=== PATIENT | female | born 1995 ===

== ENCOUNTER 2020-09-30 08:06 | Outpatient (REF) | payer OTHER, SELFPAY ==
[2020-09-30 12:37] LABS: SARS COV2 PCR INHOUSE NEGATIVE (Negative)
== END 2020-09-30 08:07 | disposition home or self-care (01) ==
LOC: HO.LAB 08:06
PROVIDERS: Visit Provider Internal Medicine
DX: Z20.822 Contact with and (suspected) exposure to COVID-19 (principal)
CPT/HCPCS: C9803; U0003

== ENCOUNTER 2020-12-19 02:38 | Emergency (ER) | payer OTHER, SELFPAY ==
--- NOTE | ~2020-12-19 | CT_ITS ---
EXAMINATION: CT ABDOMEN AND PELVIS WITHOUT CONTRAST CLINICAL INFORMATION: Left flank pain. Nausea and vomiting. COMPARISON: None TECHNIQUE: Multidetector volumetric imaging was performed from the superior aspect of the liver through the pubic symphysis. Sagittal and coronal reformatted images were obtained on the technologist's workstation. This CT examination was performed using dose optimization techniques as appropriate, variously including the following: *Automated exposure control *Adjustment of mA and/or kV according to patient size (this includes techniques or standardized protocols for targeted exams where dose is matched to indication/reason for exam; i.e. extremities or head) *Use of iterative reconstruction technique DLP: 272 mGy-cm FINDINGS: LUNG BASES: The visualized lung bases are unremarkable. LIVER, GALLBLADDER, AND BILIARY TREE: The liver is normal in size, shape, and attenuation. No focal hepatic lesion or biliary ductal dilatation is present. The gallbladder is unremarkable with no evidence of radiopaque gallstones, gallbladder wall thickening, or obvious pericholecystic inflammatory changes. PANCREAS: Unremarkable. SPLEEN: Unremarkable. ADRENAL GLANDS: Unremarkable. KIDNEYS AND URETERS: There is a 2 mm stone in the region of the left ureterovesical junction along the bladder aspect, possibly within the ureterovesical junction, or adjacent to within the bladder. Mild upstream hydroureter and pelviectasis without gaurav hydronephrosis. There are 3 punctate nonobstructive intrarenal calculi within the right kidney. BLADDER: Unremarkable. GASTROINTESTINAL TRACT: The small and large bowel are unremarkable. The appendix is unremarkable. ABDOMINAL WALL: No significant hernia is appreciated. LYMPH NODES: Normal. VASCULAR: Unremarkable. PELVIC VISCERA: Uterus and adnexa unremarkable. OSSEOUS STRUCTURES: Unremarkable. CT/CT abdomen pelvis wo con IMPRESSION: * There is a 2 mm stone within the bladder (recently passed) near the LEFT ureterovesical junction, or within the LEFT ureterovesical junctioncc, associated mild UPSTREAM hydroureter and pelviectasis. Correlate with hematology. * There are 3 punctate nonobstructive intrarenal calculi within the right kidney.
[2020-12-19 02:50] VITALS: BP 120/68; BP 133/78; PULSE 78; PULSE 88; RESP 26; TEMP 36.4; O2SAT 100; BMI 17.6
[2020-12-19 03:04] VITALS: BP 122/68; PULSE 68; RESP 22; O2SAT 100
[2020-12-19 03:04] LABS: Glucose Urine UA NEG (NEG); Leukocyte Esterase Urine NEG (NEG); Nitrite Urine NEG (NEG); Specific Gravity - Urine >= 1.030 (1.005-1.025); Urine Blood 3+ (NEG); Urine Ketones NEG (NEG); Urine Protein NEG (NEG-TRACE)
[2020-12-19 03:08] LABS: Appearance Urine CLEAR; Color Urine YELLOW
[2020-12-19 03:26] LABS: RBC Urine 50-75 /HPF (0); Squamous Epithelial Cell Urine TRACE /LPF; WBC Urine 0-2 /HPF (0-4)
[2020-12-19 03:27] LABS: Mucus Urine TRACE /LPF
--- NOTE | 2020-12-19 04:05 | ED_ITS ---
HPI - General Adult General Chief complaint: Back Pain/Injury Stated complaint: Back Pain Time Seen by Provider: 12/19/20 03:41 Source: patient Mode of arrival: EMS History of Present Illness HPI narrative: 25-year-old female who arrives via EMS with acute onset of left flank pain that was associated with several episodes of nausea and vomiting but denies any fever chills. Patient states she has never experienced this kind of pain before and denies any history of kidney stones. Otherwise, she states her LMP is 6/2 and denies any urinary pain/burning/frequency. Currently, she states she is actually feeling better. Related Data Allergies Allergy/AdvReac Type Severity Reaction Status Date / Time naproxen [From ALEVE] Allergy Unknown SWOLLEN Verified 12/19/20 02:54 Review of Systems Review of Systems: Pertinent positives and negatives as stated in HPI 10 point review of systems is otherwise negative. PMFSH Past Medical History Source: nursing notes reviewed Social History Social History Substance Use Type: Marijuana Advance Directives: No Advance Directives Information Provided: No Patient : No Physical Exam Vital Signs: Vital Signs: Last Vital Signs Temp 97.6 F 12/19/20 02:50 Pulse 68 12/19/20 03:04 Resp 22 H 12/19/20 03:04 BP 122/68 12/19/20 03:04 Pulse Ox 100 12/19/20 03:04 Body Mass Index 17.6 VITAL SIGNS: Reviewed. GENERAL: Well developed, well nourished, in no acute distress. HEAD: Normocephalic/atraumatic EYES: PERRLA, EOMI OROPHARYNX: no oral lesions noted, posterior pharynx clear NECK: Supple, no adenopathy LUNGS: Normal breath sounds. No adventitious sounds or accessory muscle use. SpO2<100> CARDIOVASCULAR: Regular rate and rhythm without noted murmurs ABDOMEN: Soft, mild tenderness on palpation of the left flank, non-distended with bowel sounds. NEUROLOGIC: Alert and oriented x 4. Course Course Course Narrative: 25-year-old female with history and clinical presentation consistent with likely passed stone, doubt UTI, pyelonephritis. On review of all investigations there is no evidence of UTI and CT scan demonstrates passed stone in the bladder. All results were discussed with patient at bedside she was discharged home in stable condition with instructions to take analgesics for residual pain. Medical Decision Making Lab Data Labs: Lab Results 12/19/20 12/19/20 Range/Units 02:58 02:58 Urine Color YELLOW Urine Appearance CLEAR Urine pH 6.0 (5.0-8.0) Ur Specific [place] >= 1.030 H (1.005-1.025) Urine Protein NEG (NEG-TRACE) MG/DL Urine Glucose (UA) NEG (NEG) MG/DL Urine Ketones NEG (NEG) MG/DL Urine Blood 3+ H (NEG) Urine Nitrite NEG (NEG) Ur Leukocyte Esterase NEG (NEG) Urine RBC 50-75 H (0) /HPF Urine WBC 0-2 (0-4) /HPF Ur Squamous Epith Cells TRACE /LPF Urine Bacteria NONE /LPF Urine Mucus TRACE /LPF Urine Test NEGATIVE (NEGATIVE) Discharge Plan Discharge Clinical Impression: Renal colic Patient Disposition: Home, Self-Care Instructions: Renal Colic (ED) Additional Instructions: 1. Increase fluid hydration especially with water. Try to avoid excessive use of carbonated/caffeinated beverages. 2. Recommend using [id number] Tylenol/ibuprofen as needed for residual pain control. 3. Follow-up with your primary care provider in the next 2-3 days for re-eval uation. Return to the ER for any acute worsening of symptoms. Referrals: Physician,None [Primary Care Provider] - 2 days
[2020-12-19 04:07] LABS: UPreg QC Valid YES; Urine Pregnancy NEGATIVE (NEGATIVE)
[2020-12-19 05:30] VITALS: BP 94/52; PULSE 72; RESP 16; O2SAT 98
[2020-12-19] MEDS: Acetaminophen 325 MG TABLET 975 MG PO (05:32)
== END 2020-12-19 05:36 | disposition home or self-care (01) ==
PROVIDERS: Emergency Provider Student in an Organized Health Care Education/Training Program
DX: N23 Unspecified renal colic (principal); Z87.442 Personal history of urinary calculi
CPT/HCPCS: 74176; 81001; 81025; 99284; 99285

== ENCOUNTER 2021-05-31 11:46 | Emergency (ER) | payer OTHER, SELFPAY ==
[2021-05-31 12:20] VITALS: BP 116/61; PULSE 77; RESP 18; TEMP 36.8; O2SAT 99; BMI 18.3
--- NOTE | 2021-05-31 13:23 | ED_ITS ---
HPI - Ear Problem General Chief complaint: Ear Problems Stated complaint: L Ear Pain Time Seen by Provider: 05/31/21 13:23 Source: patient Mode of arrival: ambulatory Limitations: no limitations History of Present Illness HPI Narrative: Left ear pain evaluation. 25-year-old female came in for evaluation of left ear pain for 2 days, patient reported that she has been cleaning her ear with Q-tips more frequently. No hearing loss. No fever or chills. Related Data Previous Rx's Medication Instructions Recorded amoxicillin 500 mg tablet 500 mg PO BID #14 tab 05/31/21 Allergies Allergy/AdvReac Type Severity Reaction Status Date / Time naproxen [From ALEVE] Allergy Unknown SWOLLEN Verified 12/19/20 02:54 Review of Systems Review of Systems: All other systems are reviewed and are negative Constitutional: Reports as per HPI and Reports no additional constitutional complaints Eyes: Reports as per HPI and Reports no additional eye complaints Reports system reviewed and no additional complaints, except as documented Cardiovascular: Reports as per HPI and Reports no additional cardiovascular complaints Respiratory: Reports as per HPI and Reports no additional respiratory complaints Gastrointestinal: Reports as per HPI and Reports no additional gastrointestinal complaints Genitourinary: Reports no additional female genitourinary complaints Musculoskeletal: Reports no additional musculoskeletal complaints Skin/Breast: Reports system reviewed and no additional complaints, except as docu Psychiatric: Reports no additional psychiatric complaints Endocrine: Reports no additional endocrine complaints Hematologic/Lymphatic: Reports no additional hematologic/lymphatic complaints Allergic/Immunologic: Reports no additional allergic/immunologic complaints Reports system reviewed and no additional complaints, except as documented and Reports Abnormal speech present [facility] Social History Social History Substance Use Type: Marijuana Advance Directives: No Advance Directives Information Provided: No Physical Exam Vital Signs: Vital Signs: Last Vital Signs Temp 98.2 F 05/31/21 12:20 Pulse 77 05/31/21 12:20 Resp 18 05/31/21 12:20 BP 116/61 05/31/21 12:20 Pulse Ox 99 05/31/21 12:20 Body Mass Index 18.3 Vital signs have been reviewed as appeared to be correct. Blood pressure normal. Heart rate normal. Respiration rate normal. Temperature normal. Oxygen saturation normal. Appearance: Alert. Oriented X3. No acute distress. Head: Normal external exam. Normocephalic. Atraumatic. No Dia signs noted. No raccoon eyes noted Eyes: PERRLA. EOMI. Conjunctiva and sclera normal. Eyelids normal. ENT: Right ear exam: Normal endotracheal nail, TM appear normal with normal li ght reflex. Left ear exam: Partial of obstruction with serial min in the auditory canal, TM can be seen slightly erythematous with absence of light reflex, tender with moving external ear. Neck: Normal inspection. Neck supple. FROM. No adenopathy. Thyroid Normal. No meningeal signs. No neck mass noted. CVS: Normal heart rate and rhythm. Heart sound normal. No murmurs noted. Pulses normal throughout. Respiratory: No respiratory distress. Painless inspiration. Breath sounds normal. No wheezes/rales/rhonchi noted. Chest nontender. No accessory muscle usage noted or decreased air movement noted. Abdomen: Soft and nontender. Bowel sounds normal in all 4 quadrants. No distention noted. No organomegaly noted. No visible injury noted. Back: No CVA tenderness. Full range of motion noted. Skin: Skin warm and dry. Normal skin color. Normal skin turgor. No rashes/lesions/lacerations noted. Extremities: No lower extremity edema. Extremities exhibit normal range of motion. Extremities nontender. Neuro: Oriented X 3. Cranial nerve exam: II-XII are grossly intact No motor deficit. No sensory deficit. Reflexes normal. Course Course Course Narrative: Assessment and plan. Left ear pain likely secondary to left otitis media and cerumen impaction in the auditory canal. Start the patient on wax removal solution, started on amoxicillin. Discharge Plan Discharge Clinical Impression: Otitis media, Otitis externa Patient Disposition: Home, Self-Care Instructions: Otitis Externa (ED), Ear Infection (ED) Prescriptions: New amoxicillin 500 mg tablet 500 mg PO BID Qty: 14 RF: 0 Referrals: Physician,None [Primary Care Provider] - 2 days
== END 2021-05-31 13:56 | disposition home or self-care (01) ==
PROVIDERS: Emergency Provider Emergency Medicine
DX: H66.92 Otitis media, unspecified, left ear (principal); H60.92 Unspecified otitis externa, left ear
CPT/HCPCS: 99283

== ENCOUNTER 2022-06-14 17:44 | Emergency (ER) | payer SELFPAY ==
[2022-06-14 18:05] VITALS: BP 139/83; PULSE 84; RESP 20; TEMP 36.7; O2SAT 95; BMI 18.3
--- NOTE | 2022-06-14 18:08 | ED_ITS ---
HPI - Skin/Abscess/Foreign Bdy General Chief complaint: Skin/Abscess/Foreign Body Stated complaint: Dehydrated/ Multiple Complaint Time Seen by Provider: 06/14/22 18:08 Source: patient Mode of arrival: ambulatory Limitations: no limitations History of Present Illness HPI narrative: 26-year-old female with history of atopic dermatitis reports itching rash over her entire body for the last 1 week. Patient describes the rash is itching and burning at times. No fevers, chills, flu-like symptoms. Patient reports she was using a topical cream but no longer has a prescribing provider to give her that Related Data Previous Rx's Medication Instructions Recorded amoxicillin 500 mg tablet 500 mg PO BID #14 tabs 05/31/21 hydrocortisone 2.5 % topical cream 1 appl topical TID PRN rash #30 06/14/22 grams prednisone 20 mg tablet 40 mg PO DAILY #10 tabs 06/14/22 Allergies Allergy/AdvReac Type Severity Reaction Status Date / Time naproxen [From ALEVE] Allergy Unknown SWOLLEN Verified 12/19/20 02:54 Review of Systems Review of Systems: Yes all other systems are reviewed and are negative Constitutional: Constitutional: Reports no additional constitutional complaints, Denies body ache(s), Denies chills, Denies fever(s), Denies headache(s) and Denies weakness Eyes: Eyes: Reports no additional eye complaints and Denies change in vision ENT: Reports system reviewed and no additional complaints, except as documented, Denies dizziness, Denies headache(s), Denies nasal congestion, Denies nasal discharge and Denies neck pain Cardiovascular: Cardiovascular: Reports no additional cardiovascular complaints, Denies chest pain, Denies leg edema and Denies dyspnea Respiratory: Respiratory: Reports no additional respiratory complaints, Denies cough and Denies dyspnea Gastrointestinal: Gastrointestinal: Reports no additional gastrointestinal complaints, Denies abdominal pain, Denies diarrhea, Denies nausea and Denies vomiting Genitourinary: Genitourinary: Reports no additional female genitourinary complaints and Denies urinary incontinence Musculoskeletal: Musculoskeletal: Reports no additional musculoskeletal complaints, Denies back pain, Denies arthralgias, Denies joint swelling, Denies neck pain, Denies numbness and Denies tingling Integumentary/Breasts: Skin/Breast: Reports system reviewed and no additional complaints, except as docu and Reports rash Neurologic: Reports system reviewed and no additional complaints, except as documented, Denies Abnormal speech present, Denies dizziness, Denies headache(s), Denies numbness, Denies tingling and Denies weakness PMFSH Past Medical History Attestation statement: The following information was validated with the patient. Source: old records reviewed and nursing notes reviewed Social History Social History Substance Use Type: Marijuana Advance Directives: No Advance Directives Information Provided: No Physical Exam Vital Signs: Vital Signs: Last Vital Signs Temp 98.0 F 06/14/22 18:05 Pulse 84 06/14/22 18:05 Resp 20 06/14/22 18:05 BP 139/83 06/14/22 18:05 Pulse Ox 95 06/14/22 18:05 O2 Del Method 06/14/22 18:05 BMI result Body Mass Index 18.3 Const: General: cooperative, healthy appearing, comfortable and no acute distress Orientation/consciousness: patient oriented x3 Limitations: no limitations HEENT: Head: Yes normal to inspection Ears: hearing grossly normal bilaterally General nose exam: Normal external nose present Face and sinus: Yes normal facial exam Mouth: Normal oral and palatal mucosa present Throat: Yes posterior oropharynx normal Eyes: General: appearance normal, both eyes and all related structures Pupils: Equal, round and reactive pupils present Neck: Neck: Yes normal visual inspection Chest: Chest palpation & inspection: normal inspection of the chest Resp: Effort & Inspection: normal respiratory effort Auscultation: clear to auscultation bilaterally Cardio: Rate: regular rate Rhythm: regular rhythm Peripheral pulses: Peripheral pulses 2+ throughout GI: Inspection: Yes normal to inspection Palpation (GI): Soft to palpation and nontender Auscultation: normal bowel sounds Back/Spine/Pelvis: Thoracic/Lumbar Spine: thoracic and lumbar spine normal to inspection Skin: Other: Over the trunk, arms legs there is a rash noted. There are lesions noted in the flexor surfaces of the upper extremities and over the trunk. These are scaling lesions in various stages of healing. There blanchable and non slopping in appe arance Neuro: General: patient oriented x3, no focal motor deficits and normal sensation to monofilament Cranial nerves: Yes Equal, round and reactive pupils present Cognition (Neuro): normal cognition Speech: No Abnormal speech present Gait exam (Neuro): Normal gait present Motor exam (neuro): 5/5 motor strength present throughout Extrem: General: Yes normal to inspection Medical Decision Making Medical Decision Making MDM Narrative: 26-year-old female with a history of atopic dermatitis here with concern for itching rash over the last week. Exam consistent with atopic dermatitis Patient will be prescribed topical steroids and prednisone course. Differential Diagnosis Differential Diagnoses: The differential diagnosis associated with the presentation includes Discharge Plan Discharge Clinical Impression: Atopic dermatitis Patient Disposition: Home, Self-Care Instructions: Dermatitis (ED) Additional Instructions: Avoid very hot showers. Shower with lukewarm water. Shower every other day. Make sure that you are using emollients like Aquaphor or Eucerin to keep well moisturized Use soaps and laundry detergents that are fragrance and perfume free Prescriptions: New prednisone 20 mg tablet 40 mg PO DAILY Qty: 10 0RF hydrocortisone 2.5 % cream 1 appl topical TID PRN (Reason: rash) Qty: 30 0RF No Action amoxicillin 500 mg tablet 500 mg PO BID Qty: 14 0RF Referrals: Physician,Unknown J [Primary Care Provider] - Interventions: ED Discharge Assessment Last Done: 06/14/22 18:22 Discharge Date/Time: 06/14/22 18:22
== END 2022-06-14 18:22 | disposition home or self-care (01) ==
PROVIDERS: Emergency Provider Emergency Medicine
DX: L20.9 Atopic dermatitis, unspecified (principal); F12.90 Cannabis use, unspecified, uncomplicated
CPT/HCPCS: 99282; 99283

== ENCOUNTER 2022-07-20 07:57 | Emergency (ER) | payer SELFPAY ==
--- NOTE | ~2022-07-20 | CT_ITS ---
EXAMINATION: CT ABDOMEN AND PELVIS WITHOUT CONTRAST CLINICAL INFORMATION: Left flank pain. History urinary tract calculi. COMPARISON: CT abdomen and pelvis noncontrast 12/19/2020. TECHNIQUE: Multidetector volumetric imaging was performed from the superior aspect of the liver through the pubic symphysis. Sagittal and coronal reformatted images were obtained on the technologist's workstation. No oral or intravenous contrast. This CT examination was performed using dose optimization techniques as appropriate, variously including the following: *Automated exposure control *Adjustment of mA and/or kV according to patient size (this includes techniques or standardized protocols for targeted exams where dose is matched to indication/reason for exam; i.e. extremities or head) *Use of iterative reconstruction technique DLP: 262 mGy-cm FINDINGS: LUNG BASES: No airspace consolidation or effusion. There are a few scattered stable tiny pleural-based nodules at the lateral bases and a nodule left lateral base just under 5 mm which are all stable from prior CT 12/19/2020, consistent with benign nodules. Fleischner guidelines below. LIVER, GALLBLADDER, AND BILIARY TREE: Parenchyma homogeneous. Liver surface smooth. Gallbladder unremarkable. No visible stone or wall thickening or pericholecystic inflammatory changes. No biliary ductal dilatation. PANCREAS: Unremarkable. SPLEEN: Unremarkable. ADRENAL GLANDS: Unremarkable. KIDNEYS AND URETERS: There is right hydronephrosis and right hydroureter with mild perinephric stranding. A new punctate calcification is seen in the right pelvis likely within the distal right ureter, not previously demonstrated (series 3 image 67, coronal 39, sagittal 59). A nonobstructing interpolar calculus right kidney is also present. The left kidney shows no hydronephrosis or hydroureter or perinephric stranding. No left urinary tract calculi. BLADDER: Unremarkable. GASTROINTESTINAL TRACT: No bowel obstruction or focal inflammatory changes in the bowel. Moderate stool in colon. Appendix normal, best visualized on the coronal and sagittal images. Small amount of ascites at cul-de-sac. No abdominal ascites. No loculated fluid collection. ABDOMINAL WALL: No significant hernia is appreciated. LYMPH NODES: No lymphadenopathy. VASCULAR: Unremarkable. PELVIC VISCERA: Cyst versus dominant follicle left ovary measuring 2.5 cm. OSSEOUS STRUCTURES: Unremarkable. CT/CT abdomen pelvis wo IV con IMPRESSION: 1. Right hydronephrosis and right hydroureter with mild perinephric stranding, suspect punctate calculus distal right ureter under 3 mm. 2. Left ovarian cyst versus dominant follicle 2.5 cm. Small amount of pelvic ascites. 3. No bowel obstruction or focal inflammatory changes in bowel. Normal appendix. 4. Scattered small nodules lung base, largest under 5 mm in stable from prior CT 12/19/2020, consistent with benign nodules. (Fleischner guidelines below) Reference: The Fleischner Society recommendations for management of incidentally detected pulmonary nodules in adults age 35 and greater are based on average nodule size and patient risk category. The recommendations do not apply to lung cancer screening, patients with immunosuppression, or patients with known primary cancer. Multiple solid nodules average size < 6 mm: Low Risk Patient: No routine follow-up. High Risk Patient: Optional CT at 12 months. Use most suspicious nodule as guide to management. Follow-up intervals may vary according to size and risk.
[2022-07-20 08:05] VITALS: BP 139/79; PULSE 79; RESP 16; O2SAT 100; BMI 17.6
--- NOTE | 2022-07-20 08:31 | ED_ITS ---
HPI - Abdominal Pain General Chief Complaint: Abdominal Pain Stated Complaint: kidney stones? feeling faint Time Seen by Provider: 07/20/22 08:27 Source: patient Mode of arrival: ambulatory Limitations: no limitations History of Present Illness HPI narrative: 26-year-old female who presents emergency department for evaluation of right flank pain that started 2 hours prior to coming the emergency department. She states the pain came on suddenly. The pain is a constant, sharp pain which is greater than 10/10. She had associated nausea and vomiting. She states she has the urge to urinate, she denied dysuria or frequency. She denied fever, chills, change in bowel movements. Patient does have a history of kidney stones. She does not recall what medications she received in the emergency department. I reviewed the record from 12/19/2020 when she was diagnosed with renal colic. The patient was discharged on Tylenol and ibuprofen. She states she can not take ibuprofen but naproxen makes her swollen. Related Data Previous Rx's Medication Instructions Recorded amoxicillin 500 mg tablet 500 mg PO BID #14 tabs 05/31/21 hydrocortisone 2.5 % topical cream 1 appl topical TID PRN rash #30 06/14/22 grams prednisone 20 mg tablet 40 mg PO DAILY #10 tabs 06/14/22 morphine 15 mg immediate release 15 mg PO Q4-6H PRN pain #10 tabs 07/20/22 tablet ondansetron 4 mg disintegrating 4 mg PO Q6-8H PRN nausea and 07/20/22 tablet vomiting #14 tabs Allergies Allergy/AdvReac Type Severity Reaction Status Date / Time naproxen [From ALEVE] Allergy Unknown SWOLLEN Verified 12/19/20 02:54 Review of Systems Review of Systems Yes all other systems are reviewed and are negative [facility] Past Medical History [facility] Narrative: Past medical history: Left-sided kidney stone 12/19/2020. Social history: She denies tobacco, alcohol and drug use. Social History Social History Alcohol intake: never Smoked in Last 30 Days: Yes Use of substances other than those prescribed or required for medical reasons: Yes Substance Use Type: Marijuana Advance Directives: No Advance Directives Information Provided: No Patient : No Physical Exam ED Vital Signs: Vital Signs - 24 hr 07/20/22 08:05 07/20/22 08:48 07/20/22 08:52 Temperature Pulse Rate 79 108 H Respiratory Rate 16 26 H 24 H Blood Pressure 139/79 Pulse Oximetry 100 99 Oxygen Delivery Method Room Air Room Air 07/20/22 09:38 07/20/22 11:01 07/20/22 11:05 Temperature 98.5 F Pulse Rate 86 48 L Respiratory Rate 18 18 16 Blood Pressure 108/62 Pulse Oximetry 100 Oxygen Delivery Method Room Air BMI result Body Mass Index 17.6 Const Other: Awake, alert, female patient, appears to be in significant distress secondary to her right-sided abdominal pain, she answers questions appropriate HENMT Head: Yes normal to inspection, Yes normocephalic and Yes atraumatic Ears: external ears normal General nose exam: Normal external nose present Face and sinus: Yes normal facial exam Mouth: Normal oral and palatal mucosa present Throat: Yes posterior oropharynx normal Eyes General: appearance normal, both eyes and all related structures Pupils: Equal, round and reactive pupils present Neck Neck: Yes normal visual inspection, Yes no lymphadenopathy, Yes trachea midline and Yes supple Chest Chest palpation & inspection: normal inspection of the chest and normal palpation of entire chest wall Resp Effort & Inspection: normal respiratory effort and able to speak in complete sentences Auscultation: clear to auscultation bilaterally Cardio Rate: regular rate Rhythm: regular rhythm Heart sounds: S1 normal heart sound present, S2 normal heart sound present and no murmurs GI Other: Patient's abdomen is thin, not distended, she has normoactive bowel sounds, she has moderate left lower quadrant tenderness, moderate right-sided CVA tenderness, she has mild suprapubic tenderness General: Yes CVA tenderness on the right Back/Spine/Pelvis Back: CVA tenderness Skin General skin exam: no rashes or lesions noted Neuro Cranial nerves: Yes CN's II-XII intact bilaterally and Yes Equal, round and reactive pupils present Cognition (Neuro): normal cognition Motor exam (neuro): 5/5 motor strength present throughout Extrem General: Yes normal to inspection Psych Appearance: grossly normal Speech and movement: Normal speech and movement present Affect: normal affect Attitude: cooperative Thought process: Normal thought process present Thought content: Normal thought content present Medical Decision Making Medical Decision Making MDM Narrative: 26-year-old female who presents emergency department for evaluation of sudden onset of right flank pain and right lower quadrant pain which started 2 hours prior to evaluation she does have a history of left-sided kidney stone in the past. Patient did have some urgency but no dysuria associated with her pain. Physical examination did reveal significant right lower quadrant, right flank and suprapubic tenderness. I ordered a CBC, CMP, lipase, urinalysis, urine test. CT scan of the abdomen pelvis without IV contrast will be obtained Patient was treated with morphine 4 mg IV, Zofran 4 mg IV and normal saline x1 L. 1145: My independent interpretation patient's laboratory evaluation as follows: WBCs elevated 15,600-this is most likely caused by her pain and demargination. Glucose was elevated 125. BUN creatinine were normal. Urinalysis revealed 5-10 WBCs, 10-20 squamous cells and 1+ bacteria-this is a non clean catch specimen. Urine test was negative. Patient only got minimal relief of her pain with 4 mg of morphine, she was ordered to get a 2nd dose of morphine 4 mg IV with no relief. She was then given Toradol 15 mg IV-the patient is allergic to naproxen but she has been able to take ibuprofen therefore I believe she should be able to take Toradol. Patient's CT scan of the abdomen pelvis without IV contrast is pending 1334: Patient did get relief with the IV Toradol, she did not have a reaction to this medication. The patient's CT scan of the abdomen pelvis did reveal a 3 mm right ureteral stone in the distal ureter. I did discuss this with the patient. The patient will be discharged home advised take Tylenol and ibuprofen. She was for scribed morphine for pain not relieved by these 2 medications. She is also prescribe Zofran ODT. The patient given the name of our on-call urologist for follow-up. She was given printed and verbal instructions and discharged home. Patient does have incidental pulmonary nodules on the CT scan which I do not think are significant Differential Diagnosis Differential Diagnoses: The differential diagnosis associated with the presentation includes Differential diagnosis includes but not limited to renal colic, appendicitis, pyelonephritis, urinary tract infection Lab Data [facility] Lab Attestation statement: I reviewed the patient's lab results. Please see [facility] Section for discussion of labs 07/20/22 08:49 07/20/22 08:49 Labs: Lab Results 01/19/23 01/19/23 01/19/23 Range/Units 08:49 08:49 11:02 WBC 15.6 H (4.8-10.8) X10*3/uL RBC 4.69 (4.20-5.50) X10*6/uL Hgb 12.3 (12.0-16.0) g/dl Hct 38.3 (37.0-47.0) % MCV 81.7 (80.0-98.0) fL MCH 26.2 L (27.0-33.0) pg MCHC 32.1 (31.0-35.0) g/dl RDW 13.2 (11.0-16.0) % Plt Count 418 H (160-400) X10*3/uL MPV 8.9 L (9.4-12.3) fL Absolute Nucleated RBC 0.000 (0.0-0.012) X10*3/uL Nucleated RBC % (auto) 0.0 (0.0-0.2) /100WBC Sodium 139 (135-145) mmol/L Potassium 4.5 (3.3-5.1) mmol/L Chloride 104 (96-108) mmol/L Carbon Dioxide 24 (22-29) mmol/L Anion Gap 16 (12-20) BUN 12 (9-16) mg/dL Creatinine 0.79 (0.5-1.4) mg/dL Estim Creat Clear Calc 77.9 Estimated GFR > 60 Random Glucose 125 H (60-115) mg/dL Calcium 9.7 (8.4-10.2) mg/dL Total Bilirubin 0.7 (0.0-1.0) mg/dL Direct Bilirubin 0.3 (0.0-0.5) mg/dL AST 20 (5-31) U/L ALT 20 (0-31) U/L Alkaline Phosphatase 104 (39-117) U/L Total Protein 7.3 (6.5-8.0) g/dL Albumin 4.2 (3.5-5.0) g/dL Lipase 7 L (8-78) U/L Beta HCG, Quant < 2 mIU/mL Urine Color Dark Yellow Urine Appearance Cloudy Urine pH 5.5 (5.0-9.0) Ur Specific [place] 1.025 (1.005-1.025) Urine Protein Trace (Neg-Trace) mg/dL Urine Glucose (UA) Negative (Negative) mg/dL Urine Ketones 15 (Negative) mg/dL Urine Blood Negative (Negative) Urine Nitrite Negative (Negative) Ur Leukocyte Esterase Trace H (Negative) Urine RBC 0-2 (0-2) /HPF Urine WBC 6-10 H (0-5) /HPF Ur Squamous Epith Cells 11-20 (0-2) /HPF Urine Bacteria 1+ (None Seen) Hyaline Casts 0-2 (0-2) /LPF Urine Test (NEGATIVE) 07/20/22 Range/Units 11:02 WBC (4.8-10.8) X10*3/uL RBC (4.20-5.50) X10*6/uL Hgb (12.0-16.0) g/dl Hct (37.0-47.0) % MCV (80.0-98.0) fL MCH (27.0-33.0) pg MCHC (31.0-35.0) g/dl RDW (11.0-16.0) % Plt Count (160-400) X10*3/uL MPV (9.4-12.3) fL Absolute Nucleated RBC (0.0-0.012) X10*3/uL Nucleated RBC % (auto) (0.0-0.2) /100WBC Sodium (135-145) mmol/L Potassium (3.3-5.1) mmol/L Chloride (96-108) mmol/L Carbon Dioxide (22-29) mmol/L Anion Gap (12-20) BUN (9-16) mg/dL Creatinine (0.5-1.4) mg/dL Estim Creat Clear Calc Estimated GFR Random Glucose (60-115) mg/dL Calcium (8.4-10.2) mg/dL Total Bilirubin (0.0-1.0) mg/dL Direct Bilirubin (0.0-0.5) mg/dL AST (5-31) U/L ALT (0-31) U/L Alkaline Phosphatase (39-117) U/L Total Protein (6.5-8.0) g/dL Albumin (3.5-5.0) g/dL Lipase (8-78) U/L Beta HCG, Quant mIU/mL Urine Color Urine Appearance Urine pH (5.0-9.0) Ur Specific [place] (1.005-1.025) Urine Protein (Neg-Trace) mg/dL Urine Glucose (UA) (Negative) mg/dL Urine Ketones (Negative) mg/dL Urine Blood (Negative) Urine Nitrite (Negative) Ur Leukocyte Esterase (Negative) Urine RBC (0-2) /HPF Urine WBC (0-5) /HPF Ur Squamous Epith Cells (0-2) /HPF Urine Bacteria (None Seen) Hyaline Casts (0-2) /LPF Urine Test NEGATIVE (NEGATIVE) Radiology Impression Discussion of test interpretation with radiology: I have reviewed the radiologist's reading. Radiologist Impression: CT/CT abdomen pelvis wo IV con IMPRESSION: 1. Right hydronephrosis and right hydroureter with mild perinephric stranding, suspect punctate calculus distal right ureter under 3 mm. ? 2. Left ovarian cyst versus dominant follicle 2.5 cm. Small amount of pelvic ascites. ? 3. No bowel obstruction or focal inflammatory changes in bowel. Normal appendix. ? 4. Scattered small nodules lung base, largest under 5 mm in stable from prior CT 12/19/2020, consistent with benign nodules. (Fleischner guidelines below) ? Reference: The Fleischner Society recommendations for management of incidentally detected pulmonary nodules in adults age 35 and greater are based on average nodule size and patient risk category.? The recommendations do not apply to lung cancer screening, patients with immunosuppression, or patients with known primary cancer.? ? Multiple solid nodules average size < 6 mm: Low Risk Patient: No routine follow-up. High Risk Patient: Optional CT at 12 months. Use most suspicious nodule as guide to management.? Follow-up intervals may vary according to size and risk. ? ?Dictated By:Jesus Clark MD Signed By:<Electronically signed by Jesus Clark MD in [place]>07/20/22 1322 Medications Administered Discontinued Medications Generic Name Dose Route Start Last Admin Trade Name Freq PRN Reason Stop Dose Admin Sodium Chloride 1,000 mls @ 999 mls/hr 07/20/22 08:32 07/20/22 09:45 Ns IV 07/20/22 09:32 Infused .Q1H1M STA Infusion Ketorolac Tromethamine 15 mg 07/20/22 11:36 07/20/22 11:42 Ketorolac Tromethamine 15 Mg/Ml Vial IVPUSH 07/20/22 11:37 15 mg ONCE STA Administration Morphine Sulfate 4 mg 07/20/22 08:32 07/20/22 08:48 Morphine Sulfate 4 Mg/Ml Cartridge IVPUSH 07/20/22 08:33 4 mg ONCE STA Administration Protocol Morphine Sulfate 4 mg 07/20/22 10:53 07/20/22 11:01 Morphine Sulfate 4 Mg/Ml Cartridge IVPUSH 07/20/22 10:54 4 mg ONCE ONE Administration Protocol Ondansetron HCl 4 mg 07/20/22 08:32 07/20/22 08:47 Ondansetron Hcl 4 Mg/2 Ml Vial IVPUSH 07/20/22 08:33 4 mg ONCE ONE Administration Discharge Plan Discharge Clinical Impression: Calculus of distal right ureter, Renal colic on left side Patient Disposition: Home, Self-Care Instructions: How to Strain Your Urine (ED), Ureteral Stones (ED) Additional Instructions: Your pain is caused by a 3 mm stone in the right ureter (the tube that connects the kidney to the bladder). Take ibuprofen 200 mg pills, 3 pills every 6 hours as needed for pain. Take Tylenol (acetaminophen) 2 pills every 4-6 hours as needed for pain. For pain not relieved by ibuprofen or Tylenol take morphine 15 mg pills, 1 pill every 4 hours as needed for pain. This medication will make you sleepy, do not drive or work while taking this medication. Morphine is a narcotic medication and can be addicting. If you are concerned about addiction you can ask the pharmacist for less pills or do not get this prescription filled. Take Zofran ODT 4 mg pills, 1 pill dissolved in your mouth every 8 hours as needed for nausea and vomiting. Follow-up with our on-call urologist in 1 to 2 weeks.. Please return to the emergency department if your symptoms get worse or if you develop any symptoms that are concerning to you. Prescriptions: New morphine 15 mg tablet 15 mg PO Q4-6H PRN (Reason: pain) Qty: 10 0RF Rx Instructions: The patient may ask for partial fill; Partial Fill upon patient request. ondansetron 4 mg tablet,disintegrating 4 mg PO Q6-8H PRN (Reason: nausea and vomiting) Qty: 14 0RF No Action prednisone 20 mg tablet 40 mg PO DAILY Qty: 10 0RF hydrocortisone 2.5 % cream 1 appl topical TID PRN (Reason: rash) Qty: 30 0RF amoxicillin 500 mg tablet 500 mg PO BID Qty: 14 0RF Referrals: Gorge Franklin MD [Physician] - 2 weeks
[2022-07-20] MEDS: ondansetron HCL 4 MG/2 ML VIAL IVPUSH (08:47)
[2022-07-20 08:48] VITALS: RESP 26
[2022-07-20] MEDS: 0.9 % Sodium Chloride 1,000 ML 999 ML IV (08:48)
[2022-07-20] MEDS: Morphine Sulfate 4 MG/ML CARTRIDGE IVPUSH ×2 (08:48→11:01)
[2022-07-20 08:52] VITALS: PULSE 108; RESP 24; O2SAT 99
--- NOTE | 2022-07-20 08:54 | PC.NURSE ---
iv obtained, blood labs obtained and sent. medicated per emar. pt is tearful, 10/10 l side flank pain. awaiting ct scan, wctm.
[2022-07-20 09:09] LABS: Hematocrit 38.3 % (37.0-47.0); Hemoglobin 12.3 g/dl (12.0-16.0); Mean Corpuscular HGB Conc 32.1 g/dl (31.0-35.0); Mean Corpuscular Hemoglobin 26.2 pg (27.0-33.0); Mean Corpuscular Volume 81.7 fL (80.0-98.0); Mean Platelet Volume 8.9 fL (9.4-12.3); Platelet Count 418 X10*3/uL (160-400); Red Blood Count 4.69 X10*6/uL (4.20-5.50); Red Cell Distribution Width 13.2 % (11.0-16.0); White Blood Count 15.6 X10*3/uL (4.8-10.8)
[2022-07-20 09:23] LABS: Alanine Aminotransferase 20 U/L (0-31); Albumin Level 4.2 g/dL (3.5-5.0); Alkaline Phosphatase 104 U/L (39-117); Anion Gap 16 (12-20); Aspartate Amino Transferase 20 U/L (5-31); Bilirubin Direct 0.3 mg/dL (0.0-0.5); Bilirubin Total 0.7 mg/dL (0.0-1.0); Blood Urea Nitrogen 12 mg/dL (9-16); Calcium 9.7 mg/dL (8.4-10.2); Carbon Dioxide 24 mmol/L (22-29); Chloride 104 mmol/L (96-108); Creatinine Clr Calc Pharmacy 77.9; Estimated Glomerular Filt Rate > 60; Glucose Random 125 mg/dL (60-115); Lipase 7 U/L (8-78); Potassium 4.5 mmol/L (3.3-5.1); Sodium 139 mmol/L (135-145); Total Protein 7.3 g/dL (6.5-8.0)
[2022-07-20 09:38] VITALS: PULSE 86; RESP 18; TEMP 36.9
--- NOTE | 2022-07-20 10:35 | PC.NURSE ---
pt appears to be sleeping soundly, when this rn in to assess pain status, pt awakes to tactile stimuli and immediately begins moaning and crying, no obvious distress noted, nausea appears resolved. awaiting ct scan att. wctm.
[2022-07-20 11:01] VITALS: RESP 18
[2022-07-20 11:05] VITALS: BP 108/62; PULSE 48; RESP 16; O2SAT 100
[2022-07-20 11:10] LABS: Appearance Urine Cloudy; Color Urine Dark Yellow; Glucose Urine UA Negative (Negative); Leukocyte Esterase Urine Trace (Negative); Nitrite Urine Negative (Negative); PH 5.5 (5.0-9.0); Specific Gravity - Urine 1.025 (1.005-1.025); UMIC TRIGGER UACC YES; Urine Blood Negative (Negative); Urine Ketones 15 mg/dL (Negative); Urine Protein Trace mg/dL (Neg-Trace)
[2022-07-20 11:12] LABS: Bacteria Urine 1+ (None Seen); Hyaline Casts Urine 0-2 /LPF (0-2); RBC Urine 0-2 /HPF (0-2); UACC Culture Trigger YES; UPreg QC Valid YES; Urine Pregnancy NEGATIVE (NEGATIVE)
[2022-07-20] MEDS: Ketorolac Tromethamine 15 MG/ML VIAL IVPUSH (11:42)
[2022-07-20 11:57] LABS: HCG Quantitative < 2 mIU/mL
== END 2022-07-20 13:50 | disposition home or self-care (01) ==
PROVIDERS: Emergency Provider Emergency Medicine Emergency Medical Services
DX: N20.1 Calculus of ureter (principal); N23 Unspecified renal colic; Z79.899 Other long term (current) drug therapy
CPT/HCPCS: 36415; 74176; 80048; 80076; 81001; 81025; 83690; 84702; 85027; 87086; 96361; 96374; 96375; 96376; 99285; J1885; J2270; J2405

== ENCOUNTER 2023-01-01 13:46 | Emergency (ER) | payer SELFPAY ==
[2023-01-01 14:36] VITALS: BP 118/74; PULSE 90; RESP 18; TEMP 36.5; O2SAT 98; BMI 17.7
--- NOTE | 2023-01-01 14:39 | ED_ITS ---
HPI - General Adult General Chief complaint: Skin/Abscess/Foreign Body Stated complaint: Dehydrated Time Seen by Provider: 01/01/23 20:24 History of Present Illness HPI narrative: Left before seeing an ED provider Related Data Previous Rx's Medication Instructions Recorded amoxicillin 500 mg tablet 500 mg PO BID #14 tabs 05/31/21 hydrocortisone 2.5 % topical cream 1 appl topical TID PRN rash #30 06/14/22 grams prednisone 20 mg tablet 40 mg PO DAILY #10 tabs 06/14/22 morphine 15 mg immediate release 15 mg PO Q4-6H PRN pain #10 tabs 07/20/22 tablet ondansetron 4 mg disintegrating 4 mg PO Q6-8H PRN nausea and 07/20/22 tablet vomiting #14 tabs Allergies Allergy/AdvReac Type Severity Reaction Status Date / Time naproxen [From ALEVE] Allergy Unknown SWOLLEN Verified 12/19/20 02:54 [facility] Social History Social History Alcohol intake: never Substance Use Type: Marijuana Advance Directives: No Advance Directives Information Provided: Yes Physical Exam ED Vital Signs: Vital Signs - 24 hr 01/01/23 14:36 01/01/23 20:19 Temperature 97.7 F 98.1 F Pulse Rate 90 68 Respiratory Rate 18 16 Blood Pressure 118/74 114/82 Pulse Oximetry 98 100 Oxygen Delivery Method Room Air Room Air BMI result Body Mass Index 17.7 Course Course Course Narrative: RME: 27 yold female presents to the ED for worsening atopic dermatitis. patient denies any swelling of lips/tongue, chest pain, or shortness of breath. Discharge Plan Discharge Clinical Impression: Contact dermatitis Patient Disposition: Elopement Prescriptions: No Action prednisone 20 mg tablet 40 mg PO DAILY Qty: 10 0RF hydrocortisone 2.5 % cream 1 appl topical TID PRN (Reason: rash) Qty: 30 0RF morphine 15 mg tablet 15 mg PO Q4-6H PRN (Reason: pain) Qty: 10 0RF Rx Instructions: The patient may ask for partial fill; Partial Fill upon patient request. ondansetron 4 mg tablet,disintegrating 4 mg PO Q6-8H PRN (Reason: nausea and vomiting) Qty: 14 0RF amoxicillin 500 mg tablet 500 mg PO BID Qty: 14 0RF Interventions: ED Discharge Assessment Last Done: 01/01/23 20:58 Discharge Date/Time: 01/01/23 20:50
[2023-01-01 20:19] VITALS: BP 114/82; PULSE 68; RESP 16; TEMP 36.7; O2SAT 100
== END 2023-01-01 20:50 | disposition left against medical advice (07) ==
PROVIDERS: Emergency Provider Emergency Medicine
DX: L25.9 Unspecified contact dermatitis, unspecified cause (principal); F12.90 Cannabis use, unspecified, uncomplicated; Z79.899 Other long term (current) drug therapy
CPT/HCPCS: 99282

== ENCOUNTER 2023-03-18 11:05 | Emergency (ER) | payer SELFPAY ==
[2023-03-18 11:31] VITALS: BP 134/78; PULSE 77; RESP 16; TEMP 36.9; O2SAT 99; BMI 18.5
--- NOTE | 2023-03-18 11:34 | ED.GENADULT ---
HPI - General Adult General Chief complaint: General Medical Stated complaint: nerves in ear to head? Time Seen by Provider: 03/18/23 12:33 Source: patient and RN notes reviewed Mode of arrival: ambulatory Limitations: no limitations History of Present Illness HPI narrative: This is a 27-year-old female presenting to the emergency department with complaints of right-sided headache and neck pain x4 days. Patient states that she snorted cocaine and later on in the evening she developed headaches and right-sided neck pain. She states that the pain worsens with movement of her neck. She denies any fevers, chills, changes in vision, chest pain, shortness breath, abdominal pain, nausea vomiting or diarrhea. She states that her headache worsens with the light and was sounds. Denies taking any medications at home to treat her current symptoms. No other complaints or concerns at this time. MD complaint: Headache, neck pain Onset (ago): day(s) Location: head and neck Radiation: non-radiation Quality: aching Pain Consistency: constant Relieving factors: none Exacerbating factors: none Associated symptoms: denies other symptoms Treatments prior to arrival: none Related Data Previous Rx's Medication Instructions Recorded amoxicillin 500 mg tablet 500 mg PO BID #14 tabs 05/31/21 hydrocortisone 2.5 % topical cream 1 appl topical TID PRN rash #30 06/14/22 grams prednisone 20 mg tablet 40 mg (2 x 20 mg) PO DAILY #10 tabs 06/14/22 morphine 15 mg immediate release 15 mg PO Q4-6H PRN pain #10 tabs 07/20/22 tablet ondansetron 4 mg disintegrating 4 mg PO Q6-8H PRN nausea and 07/20/22 tablet vomiting #14 tabs cyclobenzaprine 5 mg tablet 5 mg PO TID PRN muscle spasm #14 03/18/23 tabs ibuprofen 600 mg tablet 600 mg PO Q6H PRN pain #30 tabs 03/18/23 Allergies Allergy/AdvReac Type Severity Reaction Status Date / Time naproxen [From ALEVE] Allergy Unknown SWOLLEN Verified 03/18/23 11:34 Review of Systems Review of Systems: Yes all other systems are reviewed and are negative Constitutional: Constitutional: Reports as per [facility] Social History Social History Alcohol intake: never Substance Use Type: Marijuana Advance Directives: No Advance Directives Information Provided: Yes Physical Exam ED Vital Signs: Vital Signs - 24 hr 03/18/23 11:31 03/18/23 14:52 Temperature 98.5 F Pulse Rate 77 73 Respiratory Rate 16 14 Blood Pressure 134/78 96/52 L Pulse Oximetry 99 Oxygen Delivery Method Room Air Room Air BMI result Body Mass Index 18.5 Const General: cooperative, comfortable and no acute distress Orientation/consciousness: patient oriented x3 Limitations: no limitations HENMT Head: Yes normal to inspection, Yes normocephalic and Yes atraumatic Ears: hearing grossly normal bilaterally General nose exam: Normal external nose present Face and sinus: Yes normal facial exam Mouth: Normal oral and palatal mucosa present, oropharynx normal and moist mucous membranes Throat: Yes posterior oropharynx normal Eyes General: appearance normal, both eyes and all related structures Eyelids: Yes eyelids normal Conjunctivae: conjunctivae normal Sclerae: sclerae normal Pupils: Equal, round and reactive pupils present EOM: EOMs intact bilaterally Neck Neck: Yes normal visual inspection, Yes full ROM, Yes no lymphadenopathy and Yes no meningeal signs Lymphatic: no lymphadenopathy noted Chest Chest palpation & inspection: normal inspection of the chest Resp Effort & Inspection: normal respiratory effort and able to speak in complete sentences Auscultation: clear to auscultation bilaterally, no crackles, no rales, no rhonchi and no wheezes Cardio Rate: regular rate Rhythm: regular rhythm Heart sounds: S1 normal heart sound present and S2 normal heart sound present GI Inspection: Yes normal to inspection Back/Spine/Pelvis Other: No cervical midline spine tenderness, tenderness palpation along the right cervical paraspinous muscles with spasm noted. Cervical Spine: normal cervical lordosis Thoracic/Lumbar Spine: thoracic and lumbar spine normal to inspection Skin General skin exam: no rashes or lesions noted Trauma: no lacerations or abrasions Wounds: no wounds Neuro General: patient oriented x3, moves all extremities and no meningeal signs Cranial nerves: Yes Equal, round and reactive pupils present Extrem General: Yes normal to inspection Right upper extremity: normal to inspection Left upper extremity: normal to inspection Right lower extremity: normal to inspection Left lower extremity: normal to inspection Course Course Course Narrative: RME: 27 yold female present so the ED for right sided neck pain going up to the right ear. Patient states right sided neck pain that is worse no movement. Denies trauma. denies neck stfiffenss, fever, phtobphobia, rash, or vomitting. HPI, and PE will be done by [facility] provider Reevaluation(s) Reevaluation #1: Patient feeling much better after receiving IV medications. Consistent with migraine and cervical muscle spasm. Given return precautions. Discharge on ibuprofen muscle relaxants. Patient stable for discharge Time: 14:46 Medications Administered Discontinued Medications Generic Name Dose Route Start Last Admin Trade Name Megan PRN Reason Stop Dose Admin Diphenhydramine HCl 50 mg 03/18/23 13:31 03/18/23 13:48 Diphenhydramine Hcl 50 Mg/Ml Vial IVPUSH 03/18/23 13:32 50 mg ONCE ONE Administration Sodium Chloride 1,000 mls @ 999 mls/hr 03/18/23 13:31 03/18/23 15:03 Ns IV 03/18/23 14:31 Infused .Q1H1M ONE Infusion Ketorolac Tromethamine 30 mg 03/18/23 13:31 03/18/23 13:47 Ketorolac Tromethamine 30 Mg/Ml Vial IVPUSH 03/18/23 13:32 30 mg ONCE ONE Administration Metoclopramide HCl 10 mg 03/18/23 13:31 03/18/23 13:49 Metoclopramide Hcl 10 Mg/2 Ml Vial IVPUSH 03/18/23 13:32 10 mg ONCE ONE Administration Medical Decision Making Medical Decision Making MDM Narrative: 27-year-old female presenting to the emergency department with complaints of right-sided neck pain and headache x4 days. On arrival, vital signs within normal limits. Patient is neurologically intact. On examination patient is fully neurologically intact, with tenderness to palpation along the right cervical paraspinous muscles without any midline spine tenderness. Patient denies any IV drug use. States that she did snort cocaine 4 days ago and states that her symptoms started later on in the evening. Range of motion is full and intact in the neck, no meningeal signs. No fevers or chills. Differential diagnoses includes migraine headache, tension headache, spasmodic torticollis, muscle spasm. Less likely meningitis given presentation. Patient has no meningeal signs, with a full range of motion of her neck. Negative Brudzinski's and Kernig sign. Patient's symptoms consistent with muscle spasm and migraine headache. Patient medicated with IV Benadryl, Reglan, Toradol and fluids. Differential Diagnosis Differential Diagnoses: The differential diagnosis associated with the presentation includes See above Admission/Observation Consideration of admission/observation: Escalation of care including admission/observation considered Lab Data MDM Lab Attestation statement: I reviewed the patient's lab results. Negative Labs: Lab Results 03/18/23 Range/Units 13:54 Influenza Type A (PCR) NEGATIVE (Negative) Influenza Type B (PCR) NEGATIVE (Negative) RSV RNA Qual (PCR) NEGATIVE (Negative) SARS-CoV-2 RNA (RT-PCR) NEGATIVE (Negative) Discharge Plan Discharge Clinical Impression: Migraine, Cervical paraspinal muscle spasm Patient Disposition: Home, Self-Care Instructions: Muscle Spasm (ED) Additional Instructions: Your symptoms are consistent with a migraine and a muscle spasm. Please drink plenty of fluids and get plenty of rest. Gentle stretching, heat or ice, and massage can also help with your symptoms. Please take ibuprofen as directed as needed for pain. You may also take muscle relaxants as directed as needed. These medications can cause drowsiness, do not drink alcohol or drive while taking this medication. If any new or worsening symptoms occur, please return for re-evaluation. Prescriptions: New ibuprofen 600 mg tablet 600 mg PO Q6H PRN (Reason: pain) Qty: 30 0RF cyclobenzaprine 5 mg tablet 5 mg PO TID PRN (Reason: muscle spasm) Qty: 14 0RF No Action prednisone 20 mg tablet 40 mg PO DAILY Qty: 10 0RF hydrocortisone 2.5 % cream 1 appl topical TID PRN (Reason: rash) Qty: 30 0RF morphine 15 mg tablet 15 mg PO Q4-6H PRN (Reason: pain) Qty: 10 0RF Rx Instructions: The patient may ask for partial fill; Partial Fill upon patient request. ondansetron 4 mg tablet,disintegrating 4 mg PO Q6-8H PRN (Reason: nausea and vomiting) Qty: 14 0RF amoxicillin 500 mg tablet 500 mg PO BID Qty: 14 0RF Interventions: ED Discharge Assessment Last Done: 03/18/23 15:12 Discharge Date/Time: 03/18/23 15:14
[2023-03-18] MEDS: Ketorolac Tromethamine 30 MG/ML VIAL IVPUSH (13:47)
[2023-03-18] MEDS: 0.9 % Sodium Chloride 1,000 ML 999 ML IV (13:48)
[2023-03-18] MEDS: diphenhydrAMINE HCL 50 MG/ML VIAL IVPUSH (13:48)
[2023-03-18] MEDS: Metoclopramide HCl 10 MG/2 ML VIAL IVPUSH (13:49)
[2023-03-18 14:38] LABS: Influenza A PCR NEGATIVE (Negative); Influenza B PCR NEGATIVE (Negative); Resp Syncy Virus RNA Qual PCR NEGATIVE (Negative); SARS COV2 PCR INHOUSE NEGATIVE (Negative)
[2023-03-18 14:52] VITALS: BP 96/52; PULSE 73; RESP 14
== END 2023-03-18 15:14 | disposition home or self-care (01) ==
PROVIDERS: Physician Assistant Medical; Emergency Provider Student in an Organized Health Care Education/Training Program
DX: G43.909 Migraine, unspecified, not intractable, without status migrainosus (principal); Z20.822 Contact with and (suspected) exposure to COVID-19; Z20.828 Contact with and (suspected) exposure to other viral communicable diseases; Z79.899 Other long term (current) drug therapy
CPT/HCPCS: 0241U; 96361; 96374; 96375; 99284; J1200; J1885; J2765

== ENCOUNTER 2023-04-17 09:59 | Emergency (ER) | payer SELFPAY ==
[2023-04-17 10:25] VITALS: BP 137/101; PULSE 108; RESP 14; TEMP 37.2; O2SAT 100; BMI 20.4
[2023-04-17 10:47] LABS: Basophils Absolute Auto 0.1 X10*3/uL (0.0-0.2); Basophils Percent Auto 0.3 % (0-2); Eosinophils Absolute Auto 0.4 X10*3/uL (0.0-0.4); Eosinophils Percent Auto 1.3 % (0-4); Hematocrit 33.7 % (37.0-47.0); Hemoglobin 10.5 g/dl (12.0-16.0); Imm Gran Abs Auto 0.13 X10*3/uL (0.00-0.03); Imm Gran Pct Auto 0.5 % (0.0-0.4); Lymphocytes Absolute Auto 2.6 X10*3/uL (1.2-4.9); Lymphocytes Percent Auto 9.8 % (20-40); MANUAL DIFF FLAG SCAN; Mean Corpuscular HGB Conc 31.2 g/dl (31.0-35.0); Mean Corpuscular Hemoglobin 24.5 pg (27.0-33.0); Mean Corpuscular Volume 78.7 fL (80.0-98.0); Mean Platelet Volume 7.9 fL (9.4-12.3); Monocytes Absolute Auto 1.2 X10*3/uL (0.1-1.2); Monocytes Percent Auto 4.3 % (2-11); Neutrophils Absolute Auto 22.6 x10*3/uL (2.0-8.3); Neutrophils Percent Auto 83.8 % (45-73); Platelet Count 544 X10*3/uL (160-400); Red Blood Count 4.28 X10*6/uL (4.20-5.50); Red Cell Distribution Width 14.7 % (11.0-16.0); SCAN SMEAR FLAG 1; White Blood Count 26.9 X10*3/uL (4.8-10.8)
[2023-04-17 10:59] LABS: Anion Gap 14 (12-20)
[2023-04-17 11:02] LABS: Alanine Aminotransferase 11 U/L (0-31); Albumin Level 4.2 g/dL (3.5-5.0); Alkaline Phosphatase 112 U/L (39-117); Aspartate Amino Transferase 13 U/L (5-31); Bilirubin Direct 0.1 mg/dL (0.0-0.5); Bilirubin Total 0.4 mg/dL (0.0-1.0); Blood Urea Nitrogen 10 mg/dL (9-16); Calcium 9.1 mg/dL (8.4-10.2); Carbon Dioxide 23 mmol/L (22-29); Chloride 104 mmol/L (96-108); Creatinine Clr Calc Pharmacy 110.5; Estimated Glomerular Filt Rate > 60; Glucose Random 111 mg/dL (60-115); Lipase 9 U/L (8-78); Potassium 3.9 mmol/L (3.3-5.1); Sodium 137 mmol/L (135-145); Total Protein 7.9 g/dL (6.5-8.0)
[2023-04-17 11:04] LABS: SLIDE REVIEW VERIFIED
--- NOTE | 2023-04-17 12:46 | ED.ABDPAIN ---
HPI - Abdominal Pain General Chief Complaint: Abdominal Pain Stated Complaint: Kidney Stone Time Seen by Provider: 04/17/23 12:46 Source: patient, RN notes reviewed and old records reviewed Mode of arrival: ambulatory Limitations: no limitations History of Present Illness HPI narrative: 27 year old female with pmhx significant for nephrolithiasis presents to the ED today with right-sided abdominal pain. Today said fever, chills, neck pain, sore throat, N/V, cosntipation, diarrhea, dysuria, hematuria, vaginal discharge. Reports history of kidney stones. Related Data Previous Rx's Medication Instructions Recorded amoxicillin 500 mg tablet 500 mg PO BID #14 tabs 05/31/21 hydrocortisone 2.5 % topical cream 1 appl topical TID PRN rash #30 06/14/22 grams prednisone 20 mg tablet 40 mg (2 x 20 mg) PO DAILY #10 tabs 06/14/22 morphine 15 mg immediate release 15 mg PO Q4-6H PRN pain #10 tabs 07/20/22 tablet ondansetron 4 mg disintegrating 4 mg PO Q6-8H PRN nausea and 07/20/22 tablet vomiting #14 tabs cyclobenzaprine 5 mg tablet 5 mg PO TID PRN muscle spasm #14 03/18/23 tabs ibuprofen 600 mg tablet 600 mg PO Q6H PRN pain #30 tabs 03/18/23 Allergies Allergy/AdvReac Type Severity Reaction Status Date / Time naproxen [From ALEVE] Allergy Unknown SWOLLEN Verified 03/18/23 11:34 Review of Systems Review of Systems Constitutional: No fever, chills, fatigue, night sweats, weight changes ENT/Mouth: No ear pain, hearing loss, nasal congestion, sinus pain, rhinorrhea, sore throat Eyes: No eye pain, swelling, redness, vision changes, discharge Cardio: No chest pain, palpitations, URBAN, orthopnea, peripheral edema Pulm: No SOB, cough, sputum, wheezing, dyspnea, hemoptysis GI: No nausea, vomiting, hematemesis, +abdominal pain, No diarrhea, constipation, hematochezia, melena : No irregular bleeding, dysuria, frequency, urgency, hesitancy, hematuria, flank pain, urinary flow changes, urinary incontinence or retention MSK: No back pain, neck pain, joint pain, myalgias Skin: No lesions, rashes Neuro: No weakness, numbness, paresthesias, LOC, dizziness, headache All other systems reviewed and are negative. [facility] Past Medical History Attestation statement: The following information was validated with the patient. Source: old records reviewed and nursing notes reviewed Social History Social History Alcohol intake: never Substance Use Type: Marijuana Physical Exam ED Vital Signs: Vital Signs - 24 hr 04/17/23 10:25 Temperature 99.0 F Pulse Rate 108 H Respiratory Rate 14 Blood Pressure 137/101 H Pulse Oximetry 100 Oxygen Delivery Method Room Air BMI result Body Mass Index 20.4 Const General: cooperative, no acute distress, alert and awake Orientation/consciousness: patient oriented x3 Limitations: no limitations HENMT Head: Yes normal to inspection Ears: hearing grossly normal bilaterally General nose exam: Normal external nose present Eyes General: appearance normal, both eyes and all related structures Neck Neck: Yes normal visual inspection and Yes no meningeal signs Chest Chest palpation & inspection: normal inspection of the chest Resp Effort & Inspection: normal respiratory effort Auscultation: clear to auscultation bilaterally Cardio Rate: regular rate Rhythm: regular rhythm Heart sounds: S1 normal heart sound present and S2 normal heart sound present Peripheral pulses: Peripheral pulses 2+ throughout GI Inspection: Yes normal to inspection Palpation (GI): Soft to palpation, nontender, no guarding and hepatosplenomegaly present General: Yes no CVA tenderness Back/Spine/Pelvis Back: no CVA tenderness Skin General skin exam: no rashes or lesions noted Neuro General: patient oriented x3, gait normal, moves all extremities and no meningeal signs Cranial nerves: Yes CN's II-XII intact bilaterally Extrem General: Yes normal to inspection and Yes full ROM Course Course Course Narrative: 1247-- leukocytosis to 26.9 with left shift. Chemistry without acute electrolyte abnormality requiring intervention. Lipase WNL. Beta hCG pending. > at this time sepsis is suspected. Lactic acid, cultures, IV fluids and ceftriaxone ordered in triage. Awaiting CT abdomen and pelvis. Medical Decision Making Medical Decision Making [facility] Narrative: Labs, UA/urine , lactic, blood cultures, broad-spectrum antibiotics, IVF, and imaging ordered in triage. Clinical concern for urinary tract infection, pyelonephritis, nephrolithiasis, hydronephrosis, pelvic inflammatory disease, STI. Differential Diagnosis Differential Diagnoses: The differential diagnosis associated with the presentation includes As above. Admission/Observation Consideration of admission/observation: Escalation of care including admission/observation considered Lab Data MDM Lab Attestation statement: I reviewed the patient's lab results. As above. 04/17/23 10:40 04/17/23 10:40 Labs: Lab Results 04/17/23 Range/Units 10:40 WBC 26.9 H (4.8-10.8) X10*3/uL RBC 4.28 (4.20-5.50) X10*6/uL Hgb 10.5 L (12.0-16.0) g/dl Hct 33.7 L (37.0-47.0) % MCV 78.7 L (80.0-98.0) fL MCH 24.5 L (27.0-33.0) pg MCHC 31.2 (31.0-35.0) g/dl RDW 14.7 (11.0-16.0) % Plt Count 544 H D (160-400) X10*3/uL MPV 7.9 L (9.4-12.3) fL Immature Gran % (Auto) 0.5 H (0.0-0.4) % Neut % (Auto) 83.8 H (45-73) % Lymph % (Auto) 9.8 L (20-40) % [place] % (Auto) 4.3 (2-11) % Eos % (Auto) 1.3 (0-4) % Baso % (Auto) 0.3 (0-2) % Lymph # (Auto) 2.6 (1.2-4.9) X10*3/uL [place] # (Auto) 1.2 (0.1-1.2) X10*3/uL Eos # (Auto) 0.4 (0.0-0.4) X10*3/uL Baso # (Auto) 0.1 (0.0-0.2) X10*3/uL Abs Immat Gran (auto) 0.13 H (0.00-0.03) X10*3/uL Absolute Neuts (auto) 22.6 H (2.0-8.3) x10*3/uL Absolute Nucleated RBC 0.000 (0.0-0.012) X10*3/uL Nucleated RBC % (auto) 0.0 (0.0-0.2) /100WBC Smear Tech's Comments VERIFIED Sodium 137 (135-145) mmol/L Potassium 3.9 (3.3-5.1) mmol/L Chloride 104 (96-108) mmol/L Carbon Dioxide 23 (22-29) mmol/L Anion Gap 14 (12-20) BUN 10 (9-16) mg/dL Creatinine 0.61 (0.5-1.4) mg/dL Estim Creat Clear Calc 110.5 Estimated GFR > 60 Random Glucose 111 (60-115) mg/dL Calcium 9.1 D (8.4-10.2) mg/dL Total Bilirubin 0.4 (0.0-1.0) mg/dL Direct Bilirubin 0.1 (0.0-0.5) mg/dL AST 13 (5-31) U/L ALT 11 (0-31) U/L Alkaline Phosphatase 112 (39-117) U/L Total Protein 7.9 (6.5-8.0) g/dL Albumin 4.2 (3.5-5.0) g/dL Lipase 9 (8-78) U/L Independent Interpretation I performed an independent interpretation of an: CT Scan Radiology Impression Discussion of test interpretation with radiology: I have reviewed the radiologist's reading. External Record Review External record reviewed: Inpatient record Prescription Management I considered prescription management with: Pain Medication and Antibiotic Social Determinants Patient?s care significantly limited by Social Determinants of Health including: Other Social Determinant of Health Critical Care Time Critical Care Time Critical Care Time: No Discharge Plan Discharge Prescriptions: No Action prednisone 20 mg tablet 40 mg PO DAILY Qty: 10 0RF hydrocortisone 2.5 % cream 1 appl topical TID PRN (Reason: rash) Qty: 30 0RF morphine 15 mg tablet 15 mg PO Q4-6H PRN (Reason: pain) Qty: 10 0RF Rx Instructions: The patient may ask for partial fill; Partial Fill upon patient request. ondansetron 4 mg tablet,disintegrating 4 mg PO Q6-8H PRN (Reason: nausea and vomiting) Qty: 14 0RF amoxicillin 500 mg tablet 500 mg PO BID Qty: 14 0RF ibuprofen 600 mg tablet 600 mg PO Q6H PRN (Reason: pain) Qty: 30 0RF cyclobenzaprine 5 mg tablet 5 mg PO TID PRN (Reason: muscle spasm) Qty: 14 0RF
[2023-04-17 12:51] LABS: HCG Quantitative < 2 mIU/mL
--- NOTE | 2023-04-17 13:00 | PC.NURSE ---
PT CALLED AT 1210, 1220 AND 1240. ATTEMPTED TO CALL PT'S CELL, WRONG NUMBER LISTED
== END 2023-04-17 13:00 | disposition left against medical advice (07) ==
PROVIDERS: Emergency Medicine Emergency Medical Services; Physician Assistant; Emergency Provider Emergency Medicine
DX: R10.9 Unspecified abdominal pain (principal); Z87.442 Personal history of urinary calculi
CPT/HCPCS: 36415; 80053; 82248; 83690; 84702; 85025; 99281; 99283

== ENCOUNTER 2023-04-28 23:51 | Emergency (ER) | payer MEDICAID, SELFPAY ==
[2023-04-28 23:52] VITALS: BP 134/78; PULSE 130; RESP 20; TEMP 37.3; O2SAT 99; BMI 19.1
--- NOTE | 2023-04-29 00:01 | ED_ITS ---
HPI - General Adult General Chief complaint: Headache Stated complaint: Neck pain Time Seen by Provider: 04/28/23 23:59 Source: patient, RN notes reviewed and old records reviewed Mode of arrival: ambulatory Limitations: no limitations History of Present Illness HPI narrative: Patient is a 27-year-old female with a non-significant PMH presenting with neck stiffness and associated headache and photophobia x 6 hours. Reports she gets headaches when she doesn't sleep well and has been told in the past that she has migranes not taking meds for this daily. No a/c trauma. Denies trauma, fever, chills, fatigue, myalgias, dizziness, confusion, chest pain, shortness of breath, palpitations, abdominal pain, nausea, vomiting, urinary abnormalities, vision changes. Related Data Previous Rx's Medication Instructions Recorded amoxicillin 500 mg tablet 500 mg PO BID #14 tabs 05/31/21 hydrocortisone 2.5 % topical cream 1 appl topical TID PRN rash #30 06/14/22 grams prednisone 20 mg tablet 40 mg (2 x 20 mg) PO DAILY #10 tabs 06/14/22 morphine 15 mg immediate release 15 mg PO Q4-6H PRN pain #10 tabs 07/20/22 tablet ondansetron 4 mg disintegrating 4 mg PO Q6-8H PRN nausea and 07/20/22 tablet vomiting #14 tabs cyclobenzaprine 5 mg tablet 5 mg PO TID PRN muscle spasm #14 03/18/23 tabs ibuprofen 600 mg tablet 600 mg PO Q6H PRN pain #30 tabs 03/18/23 cyclobenzaprine 10 mg tablet 10 mg PO BEDTIME PRN muscle spasm 04/29/23 #7 tabs lidocaine 5 % topical patch 1 patch topical DAILY PRN pain #15 04/29/23 ea sumatriptan succinate 25 mg tablet 50 mg (2 x 25 mg) PO Q2H PRN 04/29/23 migraine headache #10 tabs Allergies Allergy/AdvReac Type Severity Reaction Status Date / Time naproxen [From ALEVE] Allergy Unknown SWOLLEN Verified 03/18/23 11:34 Review of Systems Review of Systems: Constitutional : No Weight loss, No Fever, No Chills, No Fatigue, No Malaise ENT/Mouth : No sore throat, No Rhinorrhea Eyes: No Eye Pain, No Swelling, No Redness Cardiovascular : No Chest Pain, No SOB, No Dyspnea on Exertion, No Orthopnea, No Edema, No Palpitations Respiratory : No Cough, No Sputum, No Wheezing Gastrointestinal : No Nausea, No Vomiting, No Diarrhea, No Constipation, No abdominal Pain, No Hematochezia, No Melena Genitourinary : No Dysuria, No Urinary Frequency, No Hematuria, Musculoskeletal : No joint pain, No Myalgias, No Joint Swelling Skin : No Skin Lesions, No rash Neuro : No Weakness, No Numbness, No Dizziness, + Headache Psych : No Anxiety/Panic, No Depression All other systems reviewed and are negative Yes all other systems are reviewed and are negative [facility] Past Medical History Attestation statement: The following information was validated with the patient. Source: old records reviewed and nursing notes reviewed Social History Social History Alcohol intake: current Alcohol intake frequency: a few times a month Smoked in Last 30 Days: Yes Use of substances other than those prescribed or required for medical reasons: Yes Substance Use Type: Marijuana Substance Use Frequency: Daily Last Used Substance: Hours (ago) Advance Directives: No Advance Directives Information Provided: No Patient : No Physical Exam ED Vital Signs: Vital Signs - 24 hr 04/28/23 23:52 Temperature 99.1 F Pulse Rate 130 H Respiratory Rate 20 Blood Pressure 134/78 Pulse Oximetry 99 Oxygen Delivery Method Room Air BMI result Body Mass Index 19.1 Patient's vital signs are stable she is noted to be tachycardic initially likely secondary to acute anxiety, she is crying, rocking back and forth in bed. Will repeat patient's pulse when she is more calm. On auscultation her pulse is around 100 Appearance: Alert.? Oriented X3.? No acute distress.? Head: Normocephalic, atraumatic, no step-offs or deformities Neck: + cervical paraspinous tenderness b/l. No midline pain. Limited rom due to pain. Negative Kernig and Brudzinski Eyes: Pupils equal, round and reactive to light.? CVS: Normal heart rate and rhythm.? Pulses normal.? Respiratory: No respiratory distress.? Breath sounds normal.? Abdomen: Soft and nontender.? Skin: Skin warm and dry.? Normal skin color.? Normal skin turgor.? Extremities: No lower extremity edema.? No calf ttp. 5/5 strength to bilateral upper and lower extremities Neuro: Oriented X 3.? No motor deficit.? No sensory deficit. CN 2-12 intact . Negative Romberg and pronator drift. Normal [id number], [id number], steady tandem gait normal coordination NIHSS- 0 Course Reevaluation(s) Reevaluation #1: Upon chart review it is noted that patient was seen here 03/18/2023 for same complaint. Was diagnosed with cervical paraspinous muscle spasms. Was given ibuprofen and cyclobenzaprine at that time. Was also diagnosed with migraine at that time. Time: 00:14 Reevaluation #2: Will give iburpofen as well patient has taken at home w/o difficulty not allergic to it. Patients heart rate now 96 bpm still anxious however. Feeling slightly better Time: 00:33 Reevaluation #3: Patient feeling better somewhat but still in pain. Heart rate much improved. Will give additional sumatriptan for sx and dc when feeling better. Also anxious will give one time dose of ativan. Will discharge home w/ sumatriptan. Educated patient on diagnosis and treatment plan, answered all question, patient verbalizes understanding. At this time patient will be discharged home, advised to return with new or worsening symptoms. Educated on worrisome signs and symptoms and when to return. At this time I feel comfortable discharge home. Time: 00:55 Medications Administered Discontinued Medications Generic Name Dose Route Start Last Admin Trade Name Ayoq PRN Reason Stop Dose Admin Cyclobenzaprine HCl 10 mg 04/29/23 00:03 04/29/23 00:16 Cyclobenzaprine Hcl 10 Mg Tablet PO 04/29/23 00:04 10 mg ONCE ONE Administration Diphenhydramine HCl 50 mg 04/29/23 00:07 04/29/23 00:16 Diphenhydramine Hcl 25 Mg Capsule PO 04/29/23 00:08 50 mg ONCE ONE Administration Ibuprofen 600 mg 04/29/23 00:32 04/29/23 00:41 Ibuprofen 600 Mg Tablet PO 04/29/23 00:33 600 mg ONCE ONE Administration Lidocaine 1 patch 04/29/23 00:03 04/29/23 00:15 Lidocaine 4 % Patch Adh..Patch TRANSDERMA 04/29/23 00:04 1 patch ONCE ONE Administration Protocol Metoclopramide HCl 10 mg 04/29/23 00:07 04/29/23 00:16 Metoclopramide Hcl 10 Mg Tablet PO 04/29/23 00:08 10 mg ONCE ONE Administration Medical Decision Making Medical Decision Making [facility] Narrative: 27-year-old female presents with neck pain, headache and photophobia time 06:00 hours. Tylenol not improving Physical exam significant for + cervical paraspinous tenderness b/l. No midline pain. Limited rom due to pain. Negative Kernig and Brudzinski Concerns for headache versus migraine versus cervical paraspinous muscle spasms resulting in headache. Unlikely meningitis encephalitis, intracranial hemorrhage, stroke, posterior stroke, SAH Plessis head CT score negative no indication for imaging, based off history and physical exam unlikely stroke. Plan at this time will medicate with cyclobenzaprine, Reglan, Benadryl and Lidoderm patch. Differential Diagnosis Differential Diagnoses: The differential diagnosis associated with the presentation includes Plessis head CT score negative no indication for imaging, based off history and physical exam unlikely stroke, SAH Admission/Observation Consideration of admission/observation: Escalation of care including admission/observation considered Unlikely Tests considered The following testing was considered but not selected: Considered labs however no fevers, chills, history of IV drug abuse, unlikely epidural abscess, no signs of infection unlikely meningitis or encephalitis no indication for lab Patient does not have midline tenderness, atraumatic in nature, no need for cervical spine or head imaging at this time. Neurological exam nonfocal. Plessis head CT score negative. Prescription Management I considered prescription management with: Pain Medication Critical Care Time Critical Care Time Critical Care Time: No Discharge Plan Discharge Clinical Impression: Cervical paraspinal muscle spasm, Migraine Patient Disposition: Home, Self-Care Instructions: Muscle Spasm (ED) Additional Instructions: Take your medications as prescribed. If you were prescribed antibiotics today, it is important that you take your medication to their entirety, do not skip any doses, do not finish them early. Follow-up with your primary care provider this week. Return to the emergency department with new or worsening symptoms. Such as fevers, chills, chest pain, shortness of breath, nausea, vomiting, dizziness, headache, vision changes, lethargy In case of emergency call 911 Please apply Lidoderm patch to the affected area. Sumatriptan has been sent for migraines to your pharmacy Prescriptions: New lidocaine 5 % adhesive patch,medicated 1 patch topical DAILY PRN (Reason: pain) Qty: 15 0RF Rx Instructions: leave on most painful area for up to 12 hrs cyclobenzaprine 10 mg tablet 10 mg PO BEDTIME PRN (Reason: muscle spasm) Qty: 7 0RF sumatriptan succinate 25 mg tablet 50 mg PO Q2H PRN (Reason: migraine headache) Qty: 10 0RF Rx Instructions: do not exceed 4 doses per 24 hrs No Action prednisone 20 mg tablet 40 mg PO DAILY Qty: 10 0RF hydrocortisone 2.5 % cream 1 appl topical TID PRN (Reason: rash) Qty: 30 0RF morphine 15 mg tablet 15 mg PO Q4-6H PRN (Reason: pain) Qty: 10 0RF Rx Instructions: The patient may ask for partial fill; Partial Fill upon patient request. ondansetron 4 mg tablet,disintegrating 4 mg PO Q6-8H PRN (Reason: nausea and vomiting) Qty: 14 0RF amoxicillin 500 mg tablet 500 mg PO BID Qty: 14 0RF ibuprofen 600 mg tablet 600 mg PO Q6H PRN (Reason: pain) Qty: 30 0RF cyclobenzaprine 5 mg tablet 5 mg PO TID PRN (Reason: muscle spasm) Qty: 14 0RF Referrals: [facility] [place] [facility] [Provider Group] - 2 days Physician,None [Primary Care Provider] - 2 days Stand Alone Forms: Work/School Release
--- NOTE | 2023-04-29 00:08 | PC.NURSE ---
Spoke with provider regarding elevated heart rate, EKG not wanted at this time.
[2023-04-29] MEDS: Lidocaine 4 % Patch ADH..PATCH 1 PATCH TRANSDERMA (00:15)
[2023-04-29] MEDS: diphenhydrAMINE HCL 25 MG CAPSULE 50 MG PO (00:16)
[2023-04-29] MEDS: Metoclopramide HCl 10 MG TABLET PO (00:16)
[2023-04-29] MEDS: Cyclobenzaprine HCl 10 MG TABLET PO (00:16)
[2023-04-29] MEDS: Ibuprofen 600 MG TABLET PO (00:41)
[2023-04-29] MEDS: SUMAtriptan succinate 6 MG/0.5 ML VIAL SUBCUT (01:03)
[2023-04-29] MEDS: LORazepam 1 MG TABLET PO (01:03)
[2023-04-29 01:06] VITALS: BP 138/86; PULSE 105; RESP 22; O2SAT 100
--- NOTE | 2023-04-29 01:31 | PC.NURSE ---
pt resting comfortably in bed. pt feels slightly better, headache is 8/10 and she is able to rest. pt feels very sleepy from the ativan, states she can barely open her eyes.
[2023-04-29 02:08] VITALS: BP 129/87; PULSE 109; RESP 16; TEMP 37.1; O2SAT 98
--- NOTE | 2023-04-29 02:18 | PC.NURSE ---
pt feels pain is manageable at this time and is ready to go home
== END 2023-04-29 02:26 | disposition home or self-care (01) ==
PROVIDERS: Emergency Provider Internal Medicine
DX: G43.909 Migraine, unspecified, not intractable, without status migrainosus (principal); M54.2 Cervicalgia; M62.838 Other muscle spasm
CPT/HCPCS: 96372; 99284; J3030

== ENCOUNTER 2023-11-16 14:53 | Emergency (ER) | payer OTHER, SELFPAY ==
[2023-11-16 15:09] VITALS: BP 133/72; PULSE 92; RESP 18; TEMP 36.4; O2SAT 100; BMI 21.8
--- NOTE | 2023-11-16 15:13 | ED.GENADULT ---
HPI - General Adult General Chief complaint: Skin/Abscess/Foreign Body Stated complaint: Skin issues Time Seen by Provider: 11/16/23 15:12 Source: patient Mode of arrival: ambulatory Limitations: no limitations History of Present Illness HPI narrative: This is a 28-year-old female presenting to the emergency department with 4 days of itchiness throughout her entire body and rash all over. Patient reports she has a history of dermatitis, this feels like her typical dermatitis however the itchiness is what is bothering her the most and it does not seem to be going away despite Claritin which usually helps. No new lotions, body washes, detergents, fragrances or foamites. Patient denies nausea, vomiting, abdominal pain, chest pain, shortness of breath, difficulty breathing, headache, vision changes, dizziness or weakness. Only known allergy is naproxen she has not taken this. Related Data Previous Rx's ?Medication ?Instructions ?Recorded amoxicillin 500 mg tablet 500 mg PO BID #14 tabs 05/31/21 hydrocortisone 2.5 % topical cream 1 appl topical TID PRN rash #30 06/14/22 grams prednisone 20 mg tablet 40 mg (2 x 20 mg) PO DAILY #10 tabs 06/14/22 morphine 15 mg immediate release 15 mg PO Q4-6H PRN pain #10 tabs 07/20/22 tablet ondansetron 4 mg disintegrating 4 mg PO Q6-8H PRN nausea and 07/20/22 tablet vomiting #14 tabs cyclobenzaprine 5 mg tablet 5 mg PO TID PRN muscle spasm #14 03/18/23 tabs ibuprofen 600 mg tablet 600 mg PO Q6H PRN pain #30 tabs 03/18/23 cyclobenzaprine 10 mg tablet 10 mg PO BEDTIME PRN muscle spasm 04/29/23 #7 tabs lidocaine 5 % topical patch 1 patch topical DAILY PRN pain #15 04/29/23 ea sumatriptan succinate 25 mg tablet 50 mg (2 x 25 mg) PO Q2H PRN 04/29/23 migraine headache #10 tabs hydroxyzine HCl 25 mg tablet 25 mg PO BEDTIME PRN anxiety #10 11/16/23 tabs prednisone 50 mg tablet 50 mg PO DAILY 5 days #5 tabs 11/16/23 Allergies Allergy/AdvReac Type Severity Reaction Status Date / Time naproxen [From ALEVE] Allergy Unknown SWOLLEN Verified 11/16/23 15:12 Review of Systems Review of Systems: Yes all other systems are reviewed and are negative [facility] Past Medical History Attestation statement: The following information was validated with the patient. Source: old records reviewed and nursing notes reviewed Social History Social History Alcohol intake: current Alcohol intake frequency: a few times a month Substance Use Type: Marijuana Physical Exam ED Vital Signs: Vital Signs - 24 hr 11/16/23 15:09 Temperature 97.6 F Pulse Rate 92 Respiratory Rate 18 Blood Pressure 133/72 Pulse Oximetry 100 Oxygen Delivery Method Room Air BMI result Body Mass Index 21.8 vss Appearance: Alert.? Oriented X3.? No acute distress.? Head: Normocephalic, atraumatic, no step-offs or deformities Eyes: Pupils equal, round and reactive to light.? ENT: Pharynx normal.?Uvula midline. No edema to mouth, tongue, lips, uvula. Speaking in full sentences controlling secretions well. Neck: Normal inspection.? Neck supple.? CVS: Normal heart rate and rhythm.? Pulses normal.? Respiratory: No respiratory distress.? Breath sounds normal.? Abdomen: Soft and nontender.? Skin: Skin warm and dry.? Normal skin color.? Normal skin turgor.? + dry skin w/ excoriations in patches to UE, LE, abd, back, trunk. No mucus membrane involvement. Extremities: No lower extremity edema.? No calf ttp. 5/5 strength to bilateral upper and lower extremities Neuro: Oriented X 3.? No motor deficit.? No sensory deficit. CN 2-12 intact Course Reevaluation(s) Reevaluation #1: Educated patient on diagnosis and treatment plan, answered all question, patient verbalizes understanding. At this time patient will be discharged home, advised to return with new or worsening symptoms. Educated on worrisome signs and symptoms and when to return. At this time I feel comfortable discharge home. Time: 15:18 Medical Decision Making Medical Decision Making [facility] Narrative: 1516 28 year old female presents w/ itchy rash x few days hx of dermatitis PE dry skin w/ excoriations in patches to UE, LE, abd, back, trunk. No mucus membrane involvement. History and physical exam concerning for dermatitis versus eczema versus psoriasi versus cutaneous allergic reaction versus allergic contact dermatitis. No signs of anaphylaxis, threat to airway, necrotizing infection, SJS or TEN Plan- dc from the waiting room with atarax for itching and prednisone. Differential Diagnosis Differential Diagnoses: The differential diagnosis associated with the presentation includes History and physical exam concerning for dermatitis versus eczema versus psoriasi versus cutaneous allergic reaction versus allergic contact dermatitis. No signs of anaphylaxis, threat to airway, necrotizing infection, SJS or TEN Admission/Observation Consideration of admission/observation: Escalation of care including admission[facility]ation [facility] Prescription Management I considered prescription management with: Other (atarax and predniosone ) Chronic Conditions Patient?s care impacted by: Other (dermatitis ) Discharge Plan Discharge Clinical Impression: Dermatitis Patient Disposition: Home, Self-Care Instructions: Dermatitis (ED), Cold Compress or Soak (ED) Additional Instructions: Take your medications as prescribed. If you were prescribed antibiotics today, it is important that you take your medication to their entirety, do not skip any doses, do not finish them early. Follow-up with your primary care provider this week. Return to the emergency department with new or worsening symptoms. Such as fevers, chills, chest pain, shortness of breath, nausea, vomiting, dizziness, headache, vision changes, lethargy In case of emergency call 911 Prescriptions: New prednisone 50 mg tablet 50 mg PO DAILY 5 Days Qty: 5 0RF hydroxyzine HCl 25 mg tablet 25 mg PO BEDTIME PRN (Reason: anxiety) Qty: 10 0RF No Action prednisone 20 mg tablet 40 mg PO DAILY Qty: 10 0RF hydrocortisone 2.5 % cream 1 appl topical TID PRN (Reason: rash) Qty: 30 0RF morphine 15 mg tablet 15 mg PO Q4-6H PRN (Reason: pain) Qty: 10 0RF Rx Instructions: The patient may ask for partial fill; Partial Fill upon patient request. ondansetron 4 mg tablet,disintegrating 4 mg PO Q6-8H PRN (Reason: nausea and vomiting) Qty: 14 0RF amoxicillin 500 mg tablet 500 mg PO BID Qty: 14 0RF ibuprofen 600 mg tablet 600 mg PO Q6H PRN (Reason: pain) Qty: 30 0RF cyclobenzaprine 5 mg tablet 5 mg PO TID PRN (Reason: muscle spasm) Qty: 14 0RF lidocaine 5 % adhesive patch,medicated 1 patch topical DAILY PRN (Reason: pain) Qty: 15 0RF Rx Instructions: leave on most painful area for up to 12 hrs cyclobenzaprine 10 mg tablet 10 mg PO BEDTIME PRN (Reason: muscle spasm) Qty: 7 0RF sumatriptan succinate 25 mg tablet 50 mg PO Q2H PRN (Reason: migraine headache) Qty: 10 0RF Rx Instructions: do not exceed 4 doses per 24 hrs Referrals: [facility] [Outside] - 1 day Physician,None [Primary Care Provider] - 2 days Stand Alone Forms: Work/School Release Print Language: Czech
[2023-11-16 15:20] VITALS: BP 133/72; PULSE 92; RESP 18; TEMP 36.4; O2SAT 100
== END 2023-11-16 15:21 | disposition home or self-care (01) ==
LOC: HO.ED 15:18
PROVIDERS: Emergency Provider Emergency Medicine
DX: L30.9 Dermatitis, unspecified (principal); R21 Rash and other nonspecific skin eruption
CPT/HCPCS: 99282; 99283

== ENCOUNTER 2023-12-04 04:34 | Emergency (ER) | payer OTHER, SELFPAY ==
--- NOTE | ~2023-12-04 | US_ITS ---
EXAMINATION: US VENOUS ULTRASOUND WITH DOPPLER LOWER EXTREMITY, BILATERAL CLINICAL INFORMATION: Lower extremity swelling/pain COMPARISON: None available. TECHNIQUE: Ultrasound of the deep veins is performed from the hip to the calf with compression sonography and color and pulse Doppler assessment. Spectral analysis with color-flow imaging is performed. FINDINGS: RIGHT: There is normal venous compression and respiratory variation. The visualized common femoral vein, superficial femoral vein, profunda femoral vein, popliteal vein, and the posterior tibial and peroneal veins show no evidence of deep venous thrombosis LEFT: There is normal venous compression and respiratory variation and augmented flow. The visualized common femoral vein, superficial femoral vein, profunda femoral vein, popliteal vein, and the posterior tibial and peroneal veins show no evidence of deep venous thrombosis. US/US venous duplex LE BI IMPRESSION: No DVT demonstrated in the bilateral lower extremities.
--- NOTE | ~2023-12-04 | XR_ITS ---
EXAMINATION: XR CHEST CLINICAL INFORMATION: Leukocytosis COMPARISON: None available. TECHNIQUE: 2 views of the chest were obtained. FINDINGS: Very slight bronchial thickening which can be seen in setting of infectious/inflammatory etiology. No pneumothorax. Trachea is midline. Cardiac mediastinal silhouette is not enlarged. No large pleural effusion. Osseous structures are intact. Soft tissues are unremarkable. XR/XR chest 2V IMPRESSION: Very slight bronchial thickening which can be seen in setting of infectious/inflammatory etiology.
--- NOTE | ~2023-12-04 | US_ITS ---
EXAMINATION: US ABDOMEN LIMITED CLINICAL INFORMATION: Right upper quadrant pain and tenderness. COMPARISON: 07/20/2022 TECHNIQUE: Real-time imaging of the right upper quadrant abdominal viscera. FINDINGS: GALLBLADDER: Normal. The gallbladder is physiologically distended without evidence of stones, sludge, polyps, wall thickening or pericholecystic fluid. Sonographic Harris sign is negative. COMMON BILE DUCT: Normal in caliber measuring 0.3 cm in diameter. FREE FLUID: None. US/US abdomen limited IMPRESSION: Unremarkable right upper quadrant ultrasound.
[2023-12-04 04:35] VITALS: BP 158/88; PULSE 142; O2SAT 98
[2023-12-04 04:58] VITALS: BP 134/80; PULSE 125; RESP 16; TEMP 37.1; O2SAT 100; BMI 21.9
[2023-12-04 06:11] LABS: Appearance Urine Clear; Color Urine Yellow; Glucose Urine UA Negative (Negative); Leukocyte Esterase Urine Negative (Negative); Nitrite Urine Negative (Negative); PH 5.5 (5.0-9.0); Specific Gravity - Urine 1.025 (1.005-1.025); UMIC TRIGGER UACC YES; Urine Blood Small (1+) (Negative); Urine Ketones Negative (Negative); Urine Protein Trace mg/dL (Neg-Trace)
[2023-12-04 06:12] LABS: UPreg QC Valid YES; Urine Pregnancy NEGATIVE (NEGATIVE)
[2023-12-04 06:19] LABS: Basophils Absolute Auto 0.1 X10*3/uL (0.0-0.2); Basophils Percent Auto 0.2 % (0-2); Eosinophils Absolute Auto 0.1 X10*3/uL (0.0-0.4); Eosinophils Percent Auto 0.3 % (0-4); Hematocrit 39.6 % (37.0-47.0); Hemoglobin 12.7 g/dl (12.0-16.0); Imm Gran Abs Auto 0.15 X10*3/uL (0.00-0.03); Imm Gran Pct Auto 0.6 % (0.0-0.4); Lymphocytes Absolute Auto 1.4 X10*3/uL (1.2-4.9); Lymphocytes Percent Auto 5.8 % (20-40); MANUAL DIFF FLAG SCAN; Mean Corpuscular HGB Conc 32.1 g/dl (31.0-35.0); Mean Corpuscular Hemoglobin 26.6 pg (27.0-33.0); Mean Corpuscular Volume 82.8 fL (80.0-98.0); Mean Platelet Volume 9.3 fL (9.4-12.3); Neutrophils Absolute Auto 22.1 x10*3/uL (2.0-8.3); Neutrophils Percent Auto 89.1 % (45-73); Platelet Count 317 X10*3/uL (160-400); Red Blood Count 4.78 X10*6/uL (4.20-5.50); Red Cell Distribution Width 13.9 % (11.0-16.0); SCAN SMEAR FLAG 1; White Blood Count 24.8 X10*3/uL (4.8-10.8)
[2023-12-04 06:20] LABS: Bacteria Urine None Seen (None Seen); Hyaline Casts Urine 0-2 /LPF (0-2); RBC Urine 0-2 /HPF (0-2); WBC Urine 0-5 /HPF (0-5)
[2023-12-04 06:23] LABS: Anion Gap 14 (12-20); Blood Urea Nitrogen 7 mg/dL (9-16); Calcium 9.3 mg/dL (8.4-10.2); Carbon Dioxide 20 mmol/L (22-29); Chloride 109 mmol/L (96-108); Creatinine Clr Calc Pharmacy 104.3; Estimated Glomerular Filt Rate > 60; Glucose Random 116 mg/dL (60-115); Potassium 3.7 mmol/L (3.3-5.1); Sodium 139 mmol/L (135-145)
[2023-12-04 06:44] LABS: SLIDE REVIEW VERIFIED
--- NOTE | 2023-12-04 07:29 | ED_ITS ---
HPI - General Adult General Chief complaint: Extremity Problem Stated complaint: weakness, swelling of legs Time Seen by Provider: 12/04/23 07:23 Source: patient, RN notes reviewed and old records reviewed Mode of arrival: ambulatory History of Present Illness ED Provider: Fawn Castelan PA-C HPI narrative: 28-year-old female with no significant past medical history presenting to the ED complaining of bilateral leg swelling & pain described as tight with paresthesias x hours, and upper abdominal pain with nausea. Abdominal pain worse with eating. Also reports headache with associated neck pain, admits to similar symptoms in the past, has been seen and treated in our ED. denies injury, trauma or fall. Reports EtOH (1 cup), cocaine, and THC use last night/this morning. Denies CP/SOB, vomiting, dysuria/hematuria, fever, vision change/loss Related Data Previous Rx's ?Medication ?Instructions ?Recorded amoxicillin 500 mg tablet 500 mg PO BID #14 tabs 05/31/21 hydrocortisone 2.5 % topical cream 1 appl topical TID PRN rash #30 06/14/22 grams prednisone 20 mg tablet 40 mg (2 x 20 mg) PO DAILY #10 tabs 06/14/22 morphine 15 mg immediate release 15 mg PO Q4-6H PRN pain #10 tabs 07/20/22 tablet ondansetron 4 mg disintegrating 4 mg PO Q6-8H PRN nausea and 07/20/22 tablet vomiting #14 tabs cyclobenzaprine 5 mg tablet 5 mg PO TID PRN muscle spasm #14 03/18/23 tabs ibuprofen 600 mg tablet 600 mg PO Q6H PRN pain #30 tabs 03/18/23 cyclobenzaprine 10 mg tablet 10 mg PO BEDTIME PRN muscle spasm 04/29/23 #7 tabs lidocaine 5 % topical patch 1 patch topical DAILY PRN pain #15 04/29/23 ea sumatriptan succinate 25 mg tablet 50 mg (2 x 25 mg) PO Q2H PRN 04/29/23 migraine headache #10 tabs hydroxyzine HCl 25 mg tablet 25 mg PO BEDTIME PRN anxiety #10 11/16/23 tabs prednisone 50 mg tablet 50 mg PO DAILY 5 days #5 tabs 11/16/23 azithromycin 250 mg tablet See Rx Instructions PO .COMPLEX #6 12/04/23 tabs cefuroxime axetil 500 mg tablet 500 mg PO BID 7 days #14 tabs 12/04/23 Allergies Allergy/AdvReac Type Severity Reaction Status Date / Time naproxen [From ALEVE] Allergy Unknown SWOLLEN Verified 12/04/23 05:01 Review of Systems 2 Review of Systems: Constitutional: No Fever, No Chills ENT/Mouth: No Ear Pain, No Nasal Congestion, No sore throat, No Rhinorrhea, No Swallowing Difficulty Cardiovascular: No Chest Pain, No SOB, +LE swelling Respiratory: No Cough, No Sputum, No Wheezing Gastrointestinal: + Nausea, No Vomiting, No Diarrhea, No Constipation, + Abdominal pain Genitourinary: No Dysuria, No Urinary Frequency, No Hematuria, No Flank Pain Musculoskeletal: No joint pain, No Myalgias, + Joint Swelling Skin: No Skin Lesions, No rash Neuro: No Weakness, No Numbness, + Paresthesias, ,+CADE Yes all other systems are reviewed and are negative Constitutional: Constitutional: Reports as per [facility] Past Medical History Attestation statement: The following information was validated with the patient. Source: old records reviewed Social History Social History Alcohol intake: current Alcohol intake frequency: a few times a month Substance Use Type: Marijuana Advance Directives: No Physical Exam ED Vital Signs: Vital Signs - 24 hr 12/04/23 04:58 12/04/23 07:41 12/04/23 09:08 Temperature 98.7 F 98.5 F 98.2 F Pulse Rate 125 H 100 90 Respiratory Rate 16 16 16 Blood Pressure 134/80 144/93 H 141/83 H Pulse Oximetry 100 100 95 Oxygen Delivery Method Room Air Room Air Room Air 12/04/23 10:35 Temperature 98.3 F Pulse Rate 82 Respiratory Rate 16 Blood Pressure 120/76 Pulse Oximetry 98 Oxygen Delivery Method Room Air BMI result Body Mass Index 21.9 Const General: cooperative, healthy appearing and no acute distress Orientation/consciousness: patient oriented x3 Limitations: no limitations HENMT Head: Yes normal to inspection and Yes atraumatic Ears: hearing grossly normal bilaterally General nose exam: Normal external nose present Face and sinus: Yes normal facial exam Eyes General: appearance normal, both eyes and all related structures EOM: EOMs intact bilaterally Neck Other: + bilateral cervical paraspinal/trapezius muscle reproducible tenderness. No meningeal signs Neck: Yes normal visual inspection, Yes no meningeal signs, No anterior neck swelling and No torticollis Resp Effort & Inspection: normal respiratory effort and no respiratory distress Auscultation: clear to auscultation bilaterally, no rhonchi and no wheezes Cardio Rate: regular rate Heart sounds: S1 normal heart sound present and S2 normal heart sound present Peripheral pulses: Peripheral pulses 2+ throughout GI Inspection: Yes normal to inspection Palpation (GI): Soft to palpation, Tenderness to palpation present (GI) in the epigastrum and in the RUQ; with no rebound tenderness, no guarding and not rigid General: Yes no CVA tenderness Back/Spine/Pelvis Other: No midline cervical/thoracic/lumbar spinous tenderness/step-off or deformity Back: no CVA tenderness Skin Rashes: no rashes Wounds: no wounds Neuro General: patient oriented x3, tone normal, moves all extremities, no meningeal signs and no focal motor deficits Cranial nerves: Yes CN's II-XII intact bilaterally Motor exam (neuro): 5/5 motor strength present throughout Extrem Other: Bilateral LE without appreciable swelling/pitting edema. Feet cool to touch. Distal pulses WNL. Compartments soft. FROM intact. No pain with active or passive ROM of LE's General: Yes normal to inspection, Yes full ROM and Yes no calf tenderness Course Course Course Narrative: -leukocytosis 24.8 > will obtain lactic and blood cultures. Still low suspicion for severe sepsis at this time -UA negative -0845--lactic acid 2.1 > infection now suspected. Will give empiric Rocephin. US abdomen limited IMPRESSION: Unremarkable right upper quadrant ultrasound. -1047--CPK WNL. Tox screen positive for cocaine/THC. Viral studies negative XR chest 2V IMPRESSION: Very slight bronchial thickening which can be seen in setting of infectious/inflammatory etiology. US venous duplex LE BI IMPRESSION: No DVT demonstrated in the bilateral lower extremities. -1123--on re-evaluation patient reports symptomatic improvement. Peripheral pulses remain intact. Compartments soft. -repeat lactic resolved -1146--vital signs improved. Leukocytosis improved to 19.0. > will treat patient for possible pneumonia outpatient Results discussed with patient including worrisome signs and symptoms and strict return precautions, and when to return to the emergency department. They verbalized understanding and feel safe for discharge at this time. Medications Administered Discontinued Medications Generic Name Dose Route Start Last Admin Trade Name Megan PRN Reason Stop Dose Admin Diphenhydramine HCl 25 mg 12/04/23 07:40 12/04/23 07:56 Diphenhydramine Hcl 50 Mg/Ml Vial IVPUSH 12/04/23 07:41 25 mg ONCE ONE Administration Sodium Chloride 1,000 mls @ 999 mls/hr 12/04/23 07:30 12/04/23 09:15 Ns IV 12/04/23 08:30 Infused .Q1H1M CAIO Infusion Sodium Chloride 1,000 mls @ 999 mls/hr 12/04/23 08:45 12/04/23 10:34 Ns IV 12/04/23 09:45 Infused .Q1H1M CAIO Infusion Ceftriaxone Sodium 1 gm/ 50 mls @ 100 mls/hr 12/04/23 08:45 12/04/23 09:41 Sodium Chloride IV 12/04/23 09:14 Infused ONCE ONE Infusion Ketorolac Tromethamine 15 mg 12/04/23 07:39 12/04/23 07:56 Ketorolac Tromethamine 15 Mg/Ml Vial IVPUSH 12/04/23 07:40 15 mg ONCE ONE Administration Metoclopramide HCl 10 mg 12/04/23 07:40 12/04/23 07:56 Metoclopramide Hcl 10 Mg/2 Ml Vial IVPUSH 12/04/23 07:41 10 mg ONCE ONE Administration Medical Decision Making Medical Decision Making MDM Narrative: 28-year-old female with no significant past medical history presenting to the ED complaining of bilateral leg swelling & pain described as tight with paresthesias x hours, and upper abdominal pain with nausea. Also reports headache with associated neck pain. On exam initially tachycardic, NAD/nontoxic appearing, lungs CTA, abdomen soft with epigastric/RUQ tenderness, no rebound or guarding, LE with cool to touch feet, pulses WNL, no pain to palpation or with active/passive motion. No meningeal signs. + MSK neck tenderness. Concern for DVT vs rhabdomyolysis vs cholecystitis/lithiasis vs pancreatitis vs viral syndrome vs migraine headache/MSK spasm. Low suspicion for arterial compromise/occlusion with good pulses. Low suspicion for SAH, meningitis/encephalitis or abscess. Unlikely ACS/dissection. Low suspicion for compartment syndrome Case d/w ED Attending Dr. Dinh who also evaluated patient and is in agreement with plan Low suspicion for severe sepsis at this time Plan: Labs, UA, abdomen ultrasound, venous duplex ultrasound, IVF, re-evaluate Please refer to course for remaining clinical decision making, interpretation of labs/imaging results, and discussions with consultants and/or family members. Differential Diagnosis Differential Diagnoses: The differential diagnosis associated with the presentation includes As above Admission/Observation Consideration of admission/observation: Escalation of care including admission/observation considered Consult Healthcare Provider ED Attending Lab Data MDM Lab Attestation statement: I reviewed the patient's lab results. 12/04/23 11:15 12/04/23 05:57 Labs: Lab Results 12/04/23 12/04/23 12/04/23 Range/Units 05:51 05:57 07:50 WBC 24.8 H (4.8-10.8) X10*3/uL RBC 4.78 (4.20-5.50) X10*6/uL Hgb 12.7 D (12.0-16.0) g/dl Hct 39.6 (37.0-47.0) % MCV 82.8 (80.0-98.0) fL MCH 26.6 L (27.0-33.0) pg MCHC 32.1 (31.0-35.0) g/dl RDW 13.9 (11.0-16.0) % Plt Count 317 D (160-400) X10*3/uL MPV 9.3 L (9.4-12.3) fL Immature Gran % (Auto) 0.6 H (0.0-0.4) % Neut % (Auto) 89.1 H (45-73) % Lymph % (Auto) 5.8 L (20-40) % [place] % (Auto) 4.0 (2-11) % Eos % (Auto) 0.3 (0-4) % Baso % (Auto) 0.2 (0-2) % Lymph # (Auto) 1.4 (1.2-4.9) X10*3/uL [place] # (Auto) 1.0 (0.1-1.2) X10*3/uL Eos # (Auto) 0.1 (0.0-0.4) X10*3/uL Baso # (Auto) 0.1 (0.0-0.2) X10*3/uL Abs Immat Gran (auto) 0.15 H (0.00-0.03) X10*3/uL Absolute Neuts (auto) 22.1 H (2.0-8.3) x10*3/uL Absolute Nucleated RBC 0.000 (0.0-0.012) X10*3/uL Nucleated RBC % (auto) 0.0 (0.0-0.2) /100WBC Smear Tech's Comments VERIFIED Sodium 139 (135-145) mmol/L Potassium 3.7 (3.3-5.1) mmol/L Chloride 109 H (96-108) mmol/L Carbon Dioxide 20 L (22-29) mmol/L Anion Gap 14 (12-20) BUN 7 L (9-16) mg/dL Creatinine 0.67 (0.5-1.4) mg/dL Estim Creat Clear Calc 104.3 Estimated GFR > 60 Random Glucose 116 H (60-115) mg/dL Lactic Acid 2.1 H* (0.5-2.0) mmol/L Lactic Acid F/U @ 2Hr (0.5-2.0) mmol/L Calcium 9.3 (8.4-10.2) mg/dL Magnesium 1.8 (1.6-2.6) mg/dL Total Bilirubin 0.2 (0.0-1.0) mg/dL Direct Bilirubin < 0.2 (0.0-0.5) mg/dL AST 15 (5-31) U/L ALT 12 (0-31) U/L Alkaline Phosphatase 115 (39-117) U/L Total Creatine Kinase 70 (26-140) U/L B-Natriuretic Peptide 10 (<100) pg/mL Total Protein 7.8 (6.5-8.0) g/dL Albumin 4.3 (3.5-5.0) g/dL Lipase 9 (8-78) U/L Beta HCG, Quant < 2 mIU/mL Urine Color Yellow Urine Appearance Clear Urine pH 5.5 (5.0-9.0) Ur Specific [place] 1.025 (1.005-1.025) Urine Protein Trace (Neg-Trace) mg/dL Urine Glucose (UA) Negative (Negative) mg/dL Urine Ketones Negative (Negative) mg/dL Urine Blood Small (1+) H (Negative) Urine Nitrite Negative (Negative) Ur Leukocyte Esterase Negative (Negative) Urine RBC 0-2 (0-2) /HPF Urine WBC 0-5 (0-5) /HPF Ur Squamous Epith Cells 3-5 (0-2) /HPF Urine Bacteria None Seen (None Seen) Hyaline Casts 0-2 (0-2) /LPF Urine Test NEGATIVE (NEGATIVE) Urine Opiates Screen Not Detected (Not Detect) Ur Buprenorphine Scrn Not Detected (Not Detect) ng/mL Ur Oxycodone Screen Not Detected (Not Detect) ng/mL Urine Methadone Screen Not Detected (Not Detect) ng/mL Urine Fentanyl Screen Not Detected (Not Detect) Ur Barbiturates Screen Not Detected (Not Detect) Ur Phencyclidine Scrn Not Detected (Not Detect) Ur Amphetamines Screen Not Detected (Not Detect) U Benzodiazepines Scrn Not Detected (Not Detect) Urine Cocaine Screen POSITIVE H (Not Detect) U Marijuana (THC) Screen POSITIVE H (Not Detect) Ethyl Alcohol < 10 mg/dL Influenza Type A (PCR) (Negative) Influenza Type B (PCR) (Negative) RSV RNA Qual (PCR) (Negative) SARS-CoV-2 RNA (RT-PCR) (Negative) 12/04/23 12/04/23 12/04/23 Range/Units 09:11 10:31 11:15 WBC 19.0 H (4.8-10.8) X10*3/uL RBC 4.15 L (4.20-5.50) X10*6/uL Hgb 10.8 L (12.0-16.0) g/dl Hct 33.9 L (37.0-47.0) % MCV 81.7 (80.0-98.0) fL MCH 26.0 L (27.0-33.0) pg MCHC 31.9 (31.0-35.0) g/dl RDW 14.0 (11.0-16.0) % Plt Count 311 (160-400) X10*3/uL MPV 8.8 L (9.4-12.3) fL Immature Gran % (Auto) 0.6 H (0.0-0.4) % Neut % (Auto) 77.6 H (45-73) % Lymph % (Auto) 16.1 L (20-40) % [place] % (Auto) 4.4 (2-11) % Eos % (Auto) 1.1 (0-4) % Baso % (Auto) 0.2 (0-2) % Lymph # (Auto) 3.1 (1.2-4.9) X10*3/uL [place] # (Auto) 0.8 (0.1-1.2) X10*3/uL Eos # (Auto) 0.2 (0.0-0.4) X10*3/uL Baso # (Auto) 0.0 (0.0-0.2) X10*3/uL Abs Immat Gran (auto) 0.11 H (0.00-0.03) X10*3/uL Absolute Neuts (auto) 14.8 H (2.0-8.3) x10*3/uL Absolute Nucleated RBC 0.000 (0.0-0.012) X10*3/uL Nucleated RBC % (auto) 0.0 (0.0-0.2) /100WBC Smear Tech's Comments Sodium (135-145) mmol/L Potassium (3.3-5.1) mmol/L Chloride (96-108) mmol/L Carbon Dioxide (22-29) mmol/L Anion Gap (12-20) BUN (9-16) mg/dL Creatinine (0.5-1.4) mg/dL Estim Creat Clear Calc Estimated GFR Random Glucose (60-115) mg/dL Lactic Acid (0.5-2.0) mmol/L Lactic Acid F/U @ 2Hr 1.0 (0.5-2.0) mmol/L Calcium (8.4-10.2) mg/dL Magnesium (1.6-2.6) mg/dL Total Bilirubin (0.0-1.0) mg/dL Direct Bilirubin (0.0-0.5) mg/dL AST (5-31) U/L ALT (0-31) U/L Alkaline Phosphatase (39-117) U/L Total Creatine Kinase (26-140) U/L B-Natriuretic Peptide (<100) pg/mL Total Protein (6.5-8.0) g/dL Albumin (3.5-5.0) g/dL Lipase (8-78) U/L Beta HCG, Quant mIU/mL Urine Color Urine Appearance Urine pH (5.0-9.0) Ur Specific [place] (1.005-1.025) Urine Protein (Neg-Trace) mg/dL Urine Glucose (UA) (Negative) mg/dL Urine Ketones (Negative) mg/dL Urine Blood (Negative) Urine Nitrite (Negative) Ur Leukocyte Esterase (Negative) Urine RBC (0-2) /HPF Urine WBC (0-5) /HPF Ur Squamous Epith Cells (0-2) /HPF Urine Bacteria (None Seen) Hyaline Casts (0-2) /LPF Urine Test (NEGATIVE) Urine Opiates Screen (Not Detect) Ur Buprenorphine Scrn (Not Detect) ng/mL Ur Oxycodone Screen (Not Detect) ng/mL Urine Methadone Screen (Not Detect) ng/mL Urine Fentanyl Screen (Not Detect) Ur Barbiturates Screen (Not Detect) Ur Phencyclidine Scrn (Not Detect) Ur Amphetamines Screen (Not Detect) U Benzodiazepines Scrn (Not Detect) Urine Cocaine Screen (Not Detect) U Marijuana (THC) Screen (Not Detect) Ethyl Alcohol mg/dL Influenza Type A (PCR) NEGATIVE (Negative) Influenza Type B (PCR) NEGATIVE (Negative) RSV RNA Qual (PCR) NEGATIVE (Negative) SARS-CoV-2 RNA (RT-PCR) NEGATIVE (Negative) Independent Interpretation I performed an independent interpretation of an: EKG and Ultrasound Radiology Impression Discussion of test interpretation with radiology: I have reviewed the radiologist's reading. External Record Review External record reviewed: Inpatient record, Office record, Outpatient record, Prior outpatient labs, Prior outpatient radiology, Primary care record and Outside ED record Tests considered The following testing was considered but not selected: As above Prescription Management I considered prescription management with: Pain Medication and Antibiotic Chronic Conditions Patient?s care impacted by: Other Social Determinants Patient?s care significantly limited by Social Determinants of Health including: Low income, Alcoholism and drug addiction in family and Problems related to primary support group Critical Care Time Critical Care Time Critical Care Time: Yes Total Critical Care Time: 60 Attestation: I have personally provided critical care time exclusive of time spent on separately billable procedures. Time includes review of lab data, radiology results, discussion with consultants, and monitoring for potential decompensation. Intervention performed as documented. Discharge Plan Discharge Clinical Impression: Pneumonia, Substance use, Acute leg pain Patient Disposition: Home, Self-Care Instructions: Polysubstance Abuse (ED), Pneumonia (ED), Leg Pain (ED) Additional Instructions: You have possible pneumonia. Ceftin and azithromycin are antibiotics please take as prescribed Your blood work showed an elevated white blood cell count, which is concerning for infection. Please take antibiotics until completion even if you start to feel better Your ultrasounds were unremarkable Please follow-up with your primary care doctor closely Please avoid drug and alcohol use If her symptoms persist or worsen eval fever, nausea/vomiting, persistent pain in her legs please return to the emergency department Prescriptions: New azithromycin 250 mg tablet See Rx Instructions .ROUTE .COMPLEX Qty: 6 0RF Rx Instructions: take 500 mg today (day 1), then 250 mg for 4 days (days 2-5) cefuroxime axetil 500 mg tablet 500 mg PO BID 7 Days Qty: 14 0RF No Action prednisone 20 mg tablet 40 mg PO DAILY Qty: 10 0RF hydrocortisone 2.5 % cream 1 appl topical TID PRN (Reason: rash) Qty: 30 0RF morphine 15 mg tablet 15 mg PO Q4-6H PRN (Reason: pain) Qty: 10 0RF Rx Instructions: The patient may ask for partial fill; Partial Fill upon patient request. ondansetron 4 mg tablet,disintegrating 4 mg PO Q6-8H PRN (Reason: nausea and vomiting) Qty: 14 0RF amoxicillin 500 mg tablet 500 mg PO BID Qty: 14 0RF ibuprofen 600 mg tablet 600 mg PO Q6H PRN (Reason: pain) Qty: 30 0RF cyclobenzaprine 5 mg tablet 5 mg PO TID PRN (Reason: muscle spasm) Qty: 14 0RF lidocaine 5 % adhesive patch,medicated 1 patch topical DAILY PRN (Reason: pain) Qty: 15 0RF Rx Instructions: leave on most painful area for up to 12 hrs cyclobenzaprine 10 mg tablet 10 mg PO BEDTIME PRN (Reason: muscle spasm) Qty: 7 0RF sumatriptan succinate 25 mg tablet 50 mg PO Q2H PRN (Reason: migraine headache) Qty: 10 0RF Rx Instructions: do not exceed 4 doses per 24 hrs prednisone 50 mg tablet 50 mg PO DAILY 5 Days Qty: 5 0RF hydroxyzine HCl 25 mg tablet 25 mg PO BEDTIME PRN (Reason: anxiety) Qty: 10 0RF Referrals: [facility] Community Navigation [Provider Group] Physician,None [Primary Care Provider] - 3 days Print Language: Czech
[2023-12-04 07:41] VITALS: BP 144/93; PULSE 100; RESP 16; TEMP 36.9; O2SAT 100
[2023-12-04 07:55] LABS: Alanine Aminotransferase 12 U/L (0-31); Albumin Level 4.3 g/dL (3.5-5.0); Alkaline Phosphatase 115 U/L (39-117); Aspartate Amino Transferase 15 U/L (5-31); Bilirubin Direct < 0.2 mg/dL (0.0-0.5); Bilirubin Total 0.2 mg/dL (0.0-1.0); Ethanol < 10 mg/dL; Lipase 9 U/L (8-78); Magnesium 1.8 mg/dL (1.6-2.6); Total Protein 7.8 g/dL (6.5-8.0)
[2023-12-04] MEDS: Ketorolac Tromethamine 15 MG/ML VIAL IVPUSH (07:56)
[2023-12-04] MEDS: diphenhydrAMINE HCL 50 MG/ML VIAL 25 MG IVPUSH (07:56)
[2023-12-04] MEDS: Metoclopramide HCl 10 MG/2 ML VIAL IVPUSH (07:56)
[2023-12-04] MEDS: 0.9 % Sodium Chloride 1,000 ML 999 ML IV ×2 (08:02→09:02)
--- NOTE | 2023-12-04 08:03 | PC.NURSE ---
a&ox4. pt slightly tachy/hypertensive. pt presents to ED w/ originally bilateral leg swelling after eating a lot of salt yesterday. no swelling noted in LE bilaterally. pt now c/o 10/10 neck pain that radiates to back of head. worsens w/ movement. pt denies change in vision/dizziness/lightheadedness. labs obtained/sent to lab. 20gIV placed in the right AC - IVF/medication administered per provider order. effectiveness pending. pt seen by ED provider/aware of plan of care. no sob/wob noted. respirations even and unlabored. call cao placed within reach.
[2023-12-04 08:08] LABS: HCG Quantitative < 2 mIU/mL
[2023-12-04 08:36] LABS: Lactic Acid 2.1 mmol/L (0.5-2.0)
--- NOTE | 2023-12-04 08:42 | ECG_ITS ---
Test Reason : tachy Blood Pressure : / mmHG Vent. Rate : 087 BPM Atrial Rate : 087 BPM P-R Int : 166 ms QRS Dur : 074 ms QT Int : 356 ms P-R-T Axes : 062 080 063 degrees QTc Int : 428 ms Sinus rhythm with marked sinus arrhythmia Otherwise normal ECG No previous ECGs available Referred By: Fawn Castelan Electronically Signed By:ROBERTA SUMMERS MD
[2023-12-04 09:07] LABS: Amphetamine Screen Urine Not Detected (Not Detect); Barbiturates, Urine Not Detected (Not Detect); Benzodiazepines Screen Urine Not Detected (Not Detect); Buprenorphine Scr Not Detected (Not Detect); Cannabinoid Screen Urine POSITIVE (Not Detect); Cocaine Screen Urine POSITIVE (Not Detect); Fentanyl, urine Not Detected (Not Detect); Methadone Screen, Urine Not Detected (Not Detect); Opiate Screen Urine Not Detected (Not Detect); Oxycodone Screen Urine Not Detected (Not Detect); Phencyclidine Screen Urine Not Detected (Not Detect)
[2023-12-04 09:08] VITALS: BP 141/83; PULSE 90; RESP 16; TEMP 36.8; O2SAT 95
[2023-12-04] MEDS: cefTRIAXone sodium 1 GM in 0.9 % Sodium Chloride 50 ML IV (09:11)
--- NOTE | 2023-12-04 09:12 | PC.NURSE ---
pt returned from xray. medication/IVF administered per provider order.
[2023-12-04 09:22] LABS: B Type Natriuretic Peptide 10 pg/mL (<100)
[2023-12-04 10:01] LABS: Reflex Lactate? Lactic Acid Added
[2023-12-04 10:11] LABS: Influenza A PCR NEGATIVE (Negative); Influenza B PCR NEGATIVE (Negative); Resp Syncy Virus RNA Qual PCR NEGATIVE (Negative); SARS COV2 PCR INHOUSE NEGATIVE (Negative)
[2023-12-04 10:35] VITALS: BP 120/76; PULSE 82; RESP 16; TEMP 36.8; O2SAT 98
[2023-12-04 11:22] LABS: MANUAL DIFF FLAG NO
[2023-12-04 11:25] LABS: Basophils Percent Auto 0.2 % (0-2); Eosinophils Absolute Auto 0.2 X10*3/uL (0.0-0.4); Eosinophils Percent Auto 1.1 % (0-4); Hematocrit 33.9 % (37.0-47.0); Hemoglobin 10.8 g/dl (12.0-16.0); Imm Gran Abs Auto 0.11 X10*3/uL (0.00-0.03); Imm Gran Pct Auto 0.6 % (0.0-0.4); Lymphocytes Absolute Auto 3.1 X10*3/uL (1.2-4.9); Lymphocytes Percent Auto 16.1 % (20-40); Mean Corpuscular HGB Conc 31.9 g/dl (31.0-35.0); Mean Corpuscular Volume 81.7 fL (80.0-98.0); Mean Platelet Volume 8.8 fL (9.4-12.3); Monocytes Absolute Auto 0.8 X10*3/uL (0.1-1.2); Monocytes Percent Auto 4.4 % (2-11); Neutrophils Absolute Auto 14.8 x10*3/uL (2.0-8.3); Neutrophils Percent Auto 77.6 % (45-73); Platelet Count 311 X10*3/uL (160-400); Red Blood Count 4.15 X10*6/uL (4.20-5.50)
[2023-12-04 12:17] VITALS: BP 120/76; PULSE 82; RESP 16; TEMP 36.8
== END 2023-12-04 12:19 | disposition home or self-care (01) ==
PROVIDERS: Physician Assistant; Emergency Provider Emergency Medicine
DX: J18.9 Pneumonia, unspecified organism (principal); F19.90 Other psychoactive substance use, unspecified, uncomplicated; M79.604 Pain in right leg; M79.605 Pain in left leg; R51.9 Headache, unspecified; M54.2 Cervicalgia
CPT/HCPCS: 0241U; 36415; 71046; 76705; 80048; 80076; 80307; 81001; 81025; 82550; 83605; 83690; 83735; 83880; 84702; 85025; 87040; 93005; 93970; 96361; 96374; 96375; 99284; J0696; J1200; J1885; J2765

== ENCOUNTER → 2023-12-04 08:42 | Outpatient (BNV) | payer OTHER, SELFPAY | PROVIDERS: Emergency Provider Emergency Medicine; Visit Provider Internal Medicine Cardiovascular Disease | DX: R00.0 Tachycardia, unspecified (principal) | CPT/HCPCS: 93010 ==

== ENCOUNTER 2024-01-18 22:15 | Emergency (ER) | payer OTHER, SELFPAY ==
--- NOTE | ~2024-01-18 | XR_ITS ---
EXAMINATION: XR CHEST CLINICAL INFORMATION: Chills. Concern for pneumonia. COMPARISON: 12/04/2023 TECHNIQUE: 2 views of the chest were obtained. FINDINGS: No significant abnormality is noted involving the heart, lungs, mediastinum, bony thorax or soft tissues. XR/XR chest 2V IMPRESSION: Unremarkable examination.
[2024-01-18 22:28] VITALS: BP 148/88; PULSE 88; RESP 16; TEMP 36.8; O2SAT 100; BMI 21.5
[2024-01-18 23:02] LABS: MANUAL DIFF FLAG NO
[2024-01-18 23:04] LABS: Basophils Absolute Auto 0.1 X10*3/uL (0.0-0.2); Basophils Percent Auto 0.3 % (0-2); Eosinophils Absolute Auto 0.7 X10*3/uL (0.0-0.4); Eosinophils Percent Auto 3.7 % (0-4); Hematocrit 40.3 % (37.0-47.0); Imm Gran Abs Auto 0.08 X10*3/uL (0.00-0.03); Imm Gran Pct Auto 0.4 % (0.0-0.4); Lymphocytes Absolute Auto 3.6 X10*3/uL (1.2-4.9); Lymphocytes Percent Auto 19.7 % (20-40); Mean Corpuscular HGB Conc 32.3 g/dl (31.0-35.0); Mean Corpuscular Hemoglobin 26.1 pg (27.0-33.0); Mean Corpuscular Volume 80.8 fL (80.0-98.0); Mean Platelet Volume 8.7 fL (9.4-12.3); Monocytes Absolute Auto 1.1 X10*3/uL (0.1-1.2); Monocytes Percent Auto 6.2 % (2-11); Neutrophils Absolute Auto 12.9 x10*3/uL (2.0-8.3); Neutrophils Percent Auto 69.7 % (45-73); Platelet Count 454 X10*3/uL (160-400); Red Blood Count 4.99 X10*6/uL (4.20-5.50); Red Cell Distribution Width 14.1 % (11.0-16.0); White Blood Count 18.5 X10*3/uL (4.8-10.8)
[2024-01-18 23:21] LABS: Alanine Aminotransferase 9 U/L (0-31); Alkaline Phosphatase 125 U/L (39-117); Anion Gap 17 (12-20); Aspartate Amino Transferase 14 U/L (5-31); Bilirubin Total 0.3 mg/dL (0.0-1.0); Blood Urea Nitrogen 10 mg/dL (9-16); Calcium 10.2 mg/dL (8.4-10.2); Carbon Dioxide 24 mmol/L (22-29); Chloride 104 mmol/L (96-108); Creatinine Clr Calc Pharmacy 84.6; Estimated Glomerular Filt Rate > 60; Glucose Random 119 mg/dL (60-115); Sodium 141 mmol/L (135-145); Total Protein 9.1 g/dL (6.5-8.0)
--- NOTE | 2024-01-18 23:24 | ED_ITS ---
HPI - General Adult General Chief complaint: General Medical Stated complaint: headache and body aches Time Seen by Provider: 01/18/24 23:24 Source: patient, RN notes reviewed and old records reviewed Mode of arrival: ambulatory Limitations: no limitations History of Present Illness ED Provider: KALIE MADDEN PA-C HPI narrative: 28 year old female with no significant pmhx presents to the ED today for evaluation of headache, nausea without vomiting, and chills which began on waking this morning. No OTC meds prior to arrival in ED. No known sick contacts. Denies recent travel outside [place]. Denies chance of . Denies fever, chills, vision changes, neck pain, sore throat, chest pain, sob, abdominal pain, flank pain, constipation, diarrhea, dysuria, hematuria, vaginal discharge. Related Data Previous Rx's ?Medication ?Instructions ?Recorded amoxicillin 500 mg tablet 500 mg PO BID #14 tabs 05/31/21 hydrocortisone 2.5 % topical cream 1 appl topical TID PRN rash #30 06/14/22 grams prednisone 20 mg tablet 40 mg (2 x 20 mg) PO DAILY #10 tabs 06/14/22 morphine 15 mg immediate release 15 mg PO Q4-6H PRN pain #10 tabs 07/20/22 tablet ondansetron 4 mg disintegrating 4 mg PO Q6-8H PRN nausea and 07/20/22 tablet vomiting #14 tabs cyclobenzaprine 5 mg tablet 5 mg PO TID PRN muscle spasm #14 03/18/23 tabs ibuprofen 600 mg tablet 600 mg PO Q6H PRN pain #30 tabs 03/18/23 cyclobenzaprine 10 mg tablet 10 mg PO BEDTIME PRN muscle spasm 04/29/23 #7 tabs lidocaine 5 % topical patch 1 patch topical DAILY PRN pain #15 04/29/23 ea sumatriptan succinate 25 mg tablet 50 mg (2 x 25 mg) PO Q2H PRN 04/29/23 migraine headache #10 tabs hydroxyzine HCl 25 mg tablet 25 mg PO BEDTIME PRN anxiety #10 11/16/23 tabs prednisone 50 mg tablet 50 mg PO DAILY 5 days #5 tabs 11/16/23 azithromycin 250 mg tablet See Rx Instructions PO .COMPLEX #6 12/04/23 tabs cefuroxime axetil 500 mg tablet 500 mg PO BID 7 days #14 tabs 12/04/23 ondansetron 4 mg disintegrating 4 mg PO DAILY PRN nausea and 01/19/24 tablet vomiting 5 days #7 tabs Allergies Allergy/AdvReac Type Severity Reaction Status Date / Time naproxen [From ALEVE] Allergy Unknown SWOLLEN Verified 01/18/24 22:29 Review of Systems 2 Review of Systems: Constitutional: No fever, chills, fatigue, night sweats, weight changes ENT/Mouth: No ear pain, hearing loss, nasal congestion, sinus pain, rhinorrhea, sore throat Eyes: No eye pain, swelling, redness, vision changes, discharge Cardio: No chest pain, palpitations, URBAN, orthopnea, peripheral edema Pulm: No SOB, cough, sputum, wheezing, dyspnea, hemoptysis GI: No vomiting, hematemesis, abdominal pain, diarrhea, constipation, hematochezia, melena, +nausea : No irregular bleeding, dysuria, frequency, urgency, hesitancy, hematuria, flank pain, urinary flow changes, urinary incontinence or retention MSK: No back pain, neck pain, joint pain, myalgias Skin: No lesions, rashes Neuro: No weakness, numbness, paresthesias, LOC, dizziness, +headache Psych: No anxiety/panic, depression, SI/HI, AH/VH All other systems reviewed and are negative. [facility] Past Medical History Attestation statement: The following information was validated with the patient. Source: old records reviewed and nursing notes reviewed Social History Social History Alcohol intake: current Alcohol intake frequency: a few times a month Substance Use Type: Marijuana Advance Directives: No Advance Directives Information Provided: No Physical Exam ED Vital Signs: Vital Signs - 24 hr 01/18/24 22:28 Temperature 98.2 F Pulse Rate 88 Respiratory Rate 16 Blood Pressure 148/88 H Pulse Oximetry 100 Oxygen Delivery Method Room Air BMI result Body Mass Index 21.5 vital signs stable, afebrile Const General: cooperative, healthy appearing, comfortable and no acute distress Orientation/consciousness: patient oriented x3 Limitations: no limitations HENMT Other: + No pain on manipulation of left pinna or tragus. No mastoid tenderness. Left EAC without erythema, edema or discharge. TM intact without erythema, effusion, or bulging. + No pain on manipulation of right pinna or tragus. No mastoid tenderness. Right EAC without erythema, edema or discharge. TM intact without erythema, effusion, or bulging. Head: Yes normal to inspection, Yes No palpable skull fracture present, Yes normocephalic and Yes atraumatic Ears: hearing grossly normal bilaterally Face and sinus: Yes normal facial exam and Yes sinuses nontender Mouth: Normal oral and palatal mucosa present Eyes General: appearance normal, both eyes and all related structures Conjunctivae: conjunctivae normal Sclerae: sclerae normal Pupils: Equal, round and reactive pupils present Direct Ophthalmoscopy: normal light reflex, no photophobia, no papilledema and fundi normal bilaterally Neck Neck: Yes normal visual inspection, Yes no lymphadenopathy and Yes no meningeal signs Resp Effort & Inspection: normal respiratory effort and able to speak in complete sentences Auscultation: clear to auscultation bilaterally Cardio Rate: regular rate Rhythm: regular rhythm GI Inspection: Yes normal to inspection Palpation (GI): Soft to palpation, nontender and no guarding General: Yes no CVA tenderness Back/Spine/Pelvis Back: no CVA tenderness Skin General skin exam: no rashes or lesions noted Neuro General: patient oriented x3, gait normal, tone normal and no meningeal signs Cranial nerves: Yes Equal, round and reactive pupils present Gait exam (Neuro): Normal gait present Motor exam (neuro): 5/5 motor strength present throughout and Pronator motor function not present Coordination: zlrumc-te-sliv test normal, ffmt-mj-teht test normal, Romberg test negative and Normal rapid alternating movements of the distal upper extremity present (Neuro) Romberg Test: Negative Pupils: Normal pupillary reactivity/response: bilateral Extrem General: Yes normal to inspection Course Course Course Narrative: 0112-- CBC showing leukocytosis to 18.5 without left shift. This appears to be around patient's baseline. no concern for acute infection. Chemistry without acute electrolyte abnormality requiring intervention. Normal renal function. Normal liver function. She tested negative for COVID, flu, RSV. Chest x-ray without consolidation or infiltrate. UA without infection or . > on re-evaluation, patient reports symptom improvement with reglan/ benadryl > she is tolerating water and crackers. at this time I feel patient is safe for discharge home. Patient has remained stable throughout ED visit today. Discussed worrisome signs and symptoms and when to return to the ED. All questions answered at this time. Patient is agreeable with disposition and stable for discharge. Medications Administered Discontinued Medications Generic Name Dose Route Start Last Admin Trade Name Megan PRN Reason Stop Dose Admin Diphenhydramine HCl 25 mg 01/18/24 23:56 01/19/24 00:06 Diphenhydramine Hcl 25 Mg Capsule PO 01/18/24 23:57 25 mg ONCE ONE Administration Metoclopramide HCl 10 mg 01/18/24 23:56 01/19/24 00:06 Metoclopramide Hcl 10 Mg Tablet PO 01/18/24 23:57 10 mg ONCE ONE Administration Medical Decision Making Medical Decision Making [facility] Narrative: 28 year old female with no significant pmhx presents to the ED today for evaluation of headache, nausea without vomiting, and chills which began on waking this morning. Patient slightly hypertensive, vitals otherwise wnl. She is nontoxic appearing and in NAD. Exam is nonfocal. Cerebellum intact. PERRLA. Posterior oropharynx wnl. No LAD. RRR. Lungs are CTA b/l. abdomen is soft, ND/NT, no rebound or guarding. no cvat b/l. no nunchal rigidity or meningeal signs. Differential diagnosis includes headache, migraine, viral syndrome, pneumonia, UTI, . Unlikely ICH, CVA/TIA, strep throat, mono, meningitits/ encephalitis. Plan for labs, viral serology, cxr, UA, re-evaluation. Differential Diagnosis Differential Diagnoses: The differential diagnosis associated with the presentation includes as above Admission/Observation Not indicated. Lab Data [facility] Lab Attestation statement: I reviewed the patient's lab results. as above 01/18/24 22:46 01/18/24 22:46 Labs: Lab Results 01/18/24 01/19/24 Range/Units 22:46 01:20 WBC 18.5 H (4.8-10.8) X10*3/uL RBC 4.99 D (4.20-5.50) X10*6/uL Hgb 13.0 D (12.0-16.0) g/dl Hct 40.3 (37.0-47.0) % MCV 80.8 (80.0-98.0) fL MCH 26.1 L (27.0-33.0) pg MCHC 32.3 (31.0-35.0) g/dl RDW 14.1 (11.0-16.0) % Plt Count 454 H D (160-400) X10*3/uL MPV 8.7 L (9.4-12.3) fL Immature Gran % (Auto) 0.4 (0.0-0.4) % Neut % (Auto) 69.7 (45-73) % Lymph % (Auto) 19.7 L (20-40) % [place] % (Auto) 6.2 (2-11) % Eos % (Auto) 3.7 (0-4) % Baso % (Auto) 0.3 (0-2) % Lymph # (Auto) 3.6 (1.2-4.9) X10*3/uL [place] # (Auto) 1.1 (0.1-1.2) X10*3/uL Eos # (Auto) 0.7 H (0.0-0.4) X10*3/uL Baso # (Auto) 0.1 (0.0-0.2) X10*3/uL Abs Immat Gran (auto) 0.08 H (0.00-0.03) X10*3/uL Absolute Neuts (auto) 12.9 H (2.0-8.3) x10*3/uL Absolute Nucleated RBC 0.000 (0.0-0.012) X10*3/uL Nucleated RBC % (auto) 0.0 (0.0-0.2) /100WBC Sodium 141 (135-145) mmol/L Potassium 4.0 (3.3-5.1) mmol/L Chloride 104 (96-108) mmol/L Carbon Dioxide 24 (22-29) mmol/L Anion Gap 17 (12-20) BUN 10 (9-16) mg/dL Creatinine 0.79 (0.5-1.4) mg/dL Estim Creat Clear Calc 84.6 Estimated GFR > 60 Random Glucose 119 H (60-115) mg/dL Calcium 10.2 D (8.4-10.2) mg/dL Total Bilirubin 0.3 (0.0-1.0) mg/dL AST 14 (5-31) U/L ALT 9 (0-31) U/L Alkaline Phosphatase 125 H (39-117) U/L Total Protein 9.1 H (6.5-8.0) g/dL Albumin 5.0 (3.5-5.0) g/dL Urine Color Yellow Urine Appearance Clear Urine pH 5.5 (5.0-9.0) Ur Specific [place] 1.025 (1.005-1.025) Urine Protein Trace (Neg-Trace) mg/dL Urine Glucose (UA) Negative (Negative) mg/dL Urine Ketones Trace (Negative) mg/dL Urine Blood Negative (Negative) Urine Nitrite Negative (Negative) Ur Leukocyte Esterase Trace H (Negative) Urine RBC 0-2 (0-2) /HPF Urine WBC 0-5 (0-5) /HPF Ur Squamous Epith Cells 3-5 (0-2) /HPF Urine Bacteria None Seen (None Seen) Hyaline Casts 0-2 (0-2) /LPF Urine Test NEGATIVE (NEGATIVE) Influenza Type A (PCR) NEGATIVE (Negative) Influenza Type B (PCR) NEGATIVE (Negative) RSV RNA Qual (PCR) NEGATIVE (Negative) SARS-CoV-2 RNA (RT-PCR) NEGATIVE (Negative) Independent Interpretation I performed an independent interpretation of an: Plain X-Ray Interpretation: CXR without consolidation or infiltrate, agree with radiologist's interpretation. Radiology Impression Discussion of test interpretation with radiology: I have reviewed the radiologist's reading. Radiologist Impression: EXAMINATION: XR CHEST CLINICAL INFORMATION: Chills. Concern for pneumonia. COMPARISON: 12/04/2023 TECHNIQUE: 2 views of the chest were obtained. FINDINGS: No significant abnormality is noted involving the heart, lungs, mediastinum, bony thorax or soft tissues. XR/XR chest 2V IMPRESSION: Unremarkable examination. External Record Review External record reviewed: Inpatient record Prescription Management I considered prescription management with: Other (zofran) Social Determinants Patient?s care significantly limited by Social Determinants of Health including: Other Social Determinant of Health Critical Care Time Critical Care Time Critical Care Time: No Discharge Plan Discharge Clinical Impression: Headache Patient Disposition: Home, Self-Care Instructions: General Headache (ED) Additional Instructions: Your blood work today is reassuring. You tested negative for COVID, flu, RSV. Your urine is negative for infection and . Your chest x-ray is normal. Take Tylenol and ibuprofen as needed at home for pain/discomfort. Zofran has been sent to your pharmacy for you to take as needed for nausea/ vomiting. Make sure you are drinking enough fluids throughout the day. Please follow up with primary care provider. Return with new or worsening symptoms. In the case of an emergency call 911. Prescriptions: New ondansetron 4 mg tablet,disintegrating 4 mg PO DAILY PRN (Reason: nausea and vomiting) 5 Days Qty: 7 0RF No Action prednisone 20 mg tablet 40 mg PO DAILY Qty: 10 0RF hydrocortisone 2.5 % cream 1 appl topical TID PRN (Reason: rash) Qty: 30 0RF morphine 15 mg tablet 15 mg PO Q4-6H PRN (Reason: pain) Qty: 10 0RF Rx Instructions: The patient may ask for partial fill; Partial Fill upon patient request. ondansetron 4 mg tablet,disintegrating 4 mg PO Q6-8H PRN (Reason: nausea and vomiting) Qty: 14 0RF amoxicillin 500 mg tablet 500 mg PO BID Qty: 14 0RF ibuprofen 600 mg tablet 600 mg PO Q6H PRN (Reason: pain) Qty: 30 0RF cyclobenzaprine 5 mg tablet 5 mg PO TID PRN (Reason: muscle spasm) Qty: 14 0RF lidocaine 5 % adhesive patch,medicated 1 patch topical DAILY PRN (Reason: pain) Qty: 15 0RF Rx Instructions: leave on most painful area for up to 12 hrs cyclobenzaprine 10 mg tablet 10 mg PO BEDTIME PRN (Reason: muscle spasm) Qty: 7 0RF sumatriptan succinate 25 mg tablet 50 mg PO Q2H PRN (Reason: migraine headache) Qty: 10 0RF Rx Instructions: do not exceed 4 doses per 24 hrs prednisone 50 mg tablet 50 mg PO DAILY 5 Days Qty: 5 0RF hydroxyzine HCl 25 mg tablet 25 mg PO BEDTIME PRN (Reason: anxiety) Qty: 10 0RF azithromycin 250 mg tablet See Rx Instructions .ROUTE .COMPLEX Qty: 6 0RF Rx Instructions: take 500 mg today (day 1), then 250 mg for 4 days (days 2-5) cefuroxime axetil 500 mg tablet 500 mg PO BID 7 Days Qty: 14 0RF Print Language: Hebrew
[2024-01-18 23:41] LABS: Influenza A PCR NEGATIVE (Negative); Influenza B PCR NEGATIVE (Negative); Resp Syncy Virus RNA Qual PCR NEGATIVE (Negative); SARS COV2 PCR INHOUSE NEGATIVE (Negative)
[2024-01-19] MEDS: diphenhydrAMINE HCL 25 MG CAPSULE PO (00:06)
[2024-01-19] MEDS: Metoclopramide HCl 10 MG TABLET PO (00:06)
[2024-01-19 01:28] LABS: Appearance Urine Clear; Color Urine Yellow; Glucose Urine UA Negative (Negative); Leukocyte Esterase Urine Trace (Negative); Nitrite Urine Negative (Negative); PH 5.5 (5.0-9.0); Specific Gravity - Urine 1.025 (1.005-1.025); UMIC TRIGGER UACC YES; Urine Blood Negative (Negative); Urine Ketones Trace mg/dL (Negative); Urine Protein Trace mg/dL (Neg-Trace)
[2024-01-19 01:31] LABS: UPreg QC Valid YES; Urine Pregnancy NEGATIVE (NEGATIVE)
[2024-01-19 01:33] LABS: Bacteria Urine None Seen (None Seen); Hyaline Casts Urine 0-2 /LPF (0-2); RBC Urine 0-2 /HPF (0-2); WBC Urine 0-5 /HPF (0-5)
[2024-01-19 02:02] VITALS: BP 148/88; PULSE 88; RESP 16; TEMP 36.8; O2SAT 100
== END 2024-01-19 02:03 | disposition home or self-care (01) ==
PROVIDERS: Physician Assistant Medical; Emergency Provider Internal Medicine
DX: R51.9 Headache, unspecified (principal); R11.0 Nausea; R68.83 Chills (without fever); Z03.818 Encounter for observation for suspected exposure to other biological agents ruled out
CPT/HCPCS: 0241U; 71046; 80053; 81001; 81025; 85025; 99282; 99283